=== PATIENT | male | born 1955 | race Caucasian/White ===

== ENCOUNTER → 2018-11-12 17:24 | Outpatient (CLI) | payer BC, SELFPAY ==
[2016-11-02 09:44] VITALS: BMI 31.8
[2016-11-02 10:30] VITALS: BMI 31.7
--- NOTE | 2018-11-12 17:33 | RAD_ITS ---
STUDY: X-RAY - LUMBAR SPINE REASON FOR EXAM: Male, 63 years old. Pain TECHNIQUE: 3 view(s) of the lumbar spine were obtained. COMPARISON: None FINDINGS: Normal lumbar lordosis. There is a minimal dextroscoliosis. Minimal wedge compression of T11 and T12. Normal vertebral bodies. Mild spurring at the endplates. Slightly narrowed L5-S1 disc space. The soft tissue structures are unremarkable. RAD/Lumbar Spine 2 or 3 Views IMPRESSION: Mild degenerative changes and minimal scoliosis of the lumbar spine. Electronically Signed: Sven Mack DO at 19:28 EDT Tel [phone], Service support ,
--- NOTE | 2018-11-12 17:33 | RAD_ITS ---
STUDY: X-RAY - THORACIC SPINE REASON FOR EXAM: Male, 63 years old. Pain TECHNIQUE: 3 view(s) of the thoracic spine were obtained. COMPARISON: None. FINDINGS: Normal kyphosis of the thoracic spine. There is no substantial scoliosis. Degenerative changes of the thoracic vertebrae with spurring at the endplates. Normal disc space heights. Sternotomy wires are noted. The soft tissue structures are unremarkable. RAD/Thoracic Spine 3 Views IMPRESSION: Degenerative changes of the thoracic spine. Electronically Signed: Sven Mack DO at 21:12 EDT Tel [phone], Service support ,
--- NOTE | 2018-11-12 17:40 | RAD_ITS ---
STUDY: X-RAY - CERVICAL SPINE REASON FOR EXAM: Male, 63 years old. Pain TECHNIQUE: 3 view(s) of the cervical spine were obtained. COMPARISON: None FINDINGS: Normal anterior atlantoaxial articulation. Normal odontoid process. Normal cervical lordosis. Degenerative changes of the vertebral bodies with spurring at the endplates. Narrowed disc space heights through the lower cervical levels. The soft tissue structures are unremarkable. RAD/Cerv Spine 2 or 3 Views IMPRESSION: Degenerative changes of the visualized cervical spine. Electronically Signed: Sven Mack DO at 21:07 EDT Tel [phone], Service support ,
== END ==
LOC: RAD 17:31
PROVIDERS: Referring Provider Anesthesiology Pain Medicine; Visit Provider Anesthesiology Pain Medicine
DX: M54.2 Cervicalgia (principal); M54.9 Dorsalgia, unspecified
CPT/HCPCS: 72040; 72072; 72100

== ENCOUNTER → 2018-12-22 14:55 | Outpatient (CLI) | payer BC, SELFPAY ==
[2016-11-02 10:30] VITALS: BMI 31.7
[2018-11-18 16:01] VITALS: BMI 34.2
--- NOTE | 2018-12-22 14:56 | ECHOD_ITS ---
Reason For Study: CHF Procedure This was a 2D Doppler, Color Flow transthoracic echocardiogram. Exam performed in department. Left Ventricle Normal size and thickness. The estimated ejection fraction is 65 %. Stage 1 diastolic dysfunction. No regional wall motion abnormalities noted. Right Ventricle Normal size and thickness. Normal systolic function. Atria The left atrium is mildly enlarged. Normal right atrium. Normal atrial septum. Mitral Valve Posterior leaflet mitral valve prolapse. Mild (1+) anteriorly directed mitral valve insufficiency. Tricuspid Valve Normal tricuspid valve. Trivial tricuspid valve insufficiency. Right ventricular systolic pressure estimated to be 45 mmHg. Mild pulmonary hypertension. Aortic Valve Normal aortic valve. Trisinus/trileaflet aortic valve. Pulmonic Valve Normal pulmonic valve. Great Vessels Normal aortic root. Normal arch. Normal inferior vena cava. Inferior vena cava collapse with sniff. Pericardium/Pleural No pericardial effusion. MMode/2D Measurements & Calculations LVIDd: 5.2 cm IVSd: 1.2 cm Ao root diam: 2.9 cm LVIDs: 3.2 cm LVPWd: 1.2 cm RVDd: 4.4 cm FS: 37.3 % LAV(MOD-bp): 65.2 ml LVAd ap4: 27.8 cm2 SV(MOD-sp4): 58.1 ml LAV(MOD-bp) Indexed: 28.3 ml/m2 EDV(MOD-sp4): 85.8 ml LAV(MOD-sp2): 60.6 ml EDV(sp4-el): 90.7 ml LAV(MOD-sp4): 71.2 ml LVAs ap4: 14.2 cm2 ESV(MOD-sp4): 27.7 ml ESV(sp4-el): 28.6 ml EF(MOD-sp4): 67.7 % EF(sp4-el): 68.4 % SV(sp4-el): 62.0 ml LA A4 area: 22.7 cm2 LA dimension(2D): 5.4 cm RA A4 area: 16.6 cm2 Doppler Measurements & Calculations MV E max goyo: 105.0 cm/sec Lat Peak E' Goyo: 9.9 cm/sec Med Peak E' Goyo: 6.6 cm/sec MV A max goyo: 50.9 cm/sec E/E' lat: 10.6 E/E' med: 15.8 MV E/A: 2.1 Ao V2 max: 189.3 cm/sec LV V1 max: 99.0 cm/sec PA V2 max: 145.4 cm/sec Ao max P.3 mmHg LV V1 max P.9 mmHg Ao V2 mean: 130.7 cm/sec Ao mean P.8 mmHg Ao V2 VTI: 46.7 cm PI end-d goyo: 102.1 cm/sec TR max goyo: 317.2 cm/sec TR max P.2 mmHg Interpretation Summary The estimated ejection fraction is 65 %. Stage 1 diastolic dysfunction. The left atrium is mildly enlarged. Posterior leaflet mitral valve prolapse. Mild (1+) anteriorly directed mitral valve insufficiency. Trivial tricuspid valve insufficiency. Right ventricular systolic pressure estimated to be 45 mmHg. Mild pulmonary hypertension. Compared to echo report dated 12/22/2014, LV function has remained the same, RVSP has increased from 31 to 45 mm Hg, and MR has gone from trivial to mild, with anteriorly directed regurgitation. Ordering Physician: Will Mcneill Referring Physician: Out Of Town Doctor Performed By: Haley Menon, KOBE, RVT
== END ==
LOC: CVS 14:56
PROVIDERS: Referring Provider Internal Medicine Cardiovascular Disease; Visit Provider Internal Medicine Cardiovascular Disease
DX: I25.10 Atherosclerotic heart disease of native coronary artery without angina pectoris (principal); E78.5 Hyperlipidemia, unspecified
CPT/HCPCS: 93306

== ENCOUNTER → 2018-12-25 13:25 | Outpatient (CLI) | payer BC, SELFPAY ==
[2016-11-02 10:30] VITALS: BMI 31.7
[2018-11-18 16:01] VITALS: BMI 34.2
--- NOTE | 2018-12-25 13:26 | STEWCON_ITS ---
Reason For Study: CHEST PAIN Stress Results Protocol: Dobutatmine Stress Echo Maximum Predicted HR: 157 bpm Target HR: 133 bpm % Maximum Predicted HR: 78 % Heart Stage Duration Rate BP Dose Comment (mm:ss) (bpm) DILUTED DEFINITY 5 CC USED, PT STATES HE ALWAYS HAS CP. BASELINE 53 145/[address] RUTH DSE- 10 MCG 3:50 80 131/6510.00 DSE- 20 MCG 3:41 90 155/6420.00 DSDE- 30 MCG 3:05 98 140/6730.00CP 8, ATROPINE GIVEN @ 2:28 0.5 MG IVP DSE- 40 MCG 3:33 123 124/7340.00ATROPINE GIVEN @ 2:32 0.5 MG IVP, CP 10 RECOVERY 99 148/79 ST CHANGES [address]VED[address] MCNEILL AWARE OF CHANGES Stress Duration: 14:09 mm:ss Maximum Stress HR: 123 bpm Baseline Echocardiogram Findings Stress Echo Wall motion Data Resting WM Intermediate WM Stress WM Resting Wall Motion Wall Motion Stress No regional wall motion Posterior-Basal: Mildly abnormalities noted. hypokinetic. Infero-Basal: Mildly hypokinetic. EKG Data The baseline ECG displays normal sinus rhythm. The patient was titrated from 10 mcg to a maximum of 40 mcg of dobutamine during the stress. The maximum heart rate attained was 123 beats per minute. This was 78% of maximum predicted heart rate. The stress ECG displays diffuse abnormal ST segments. No arrhythmias noted. Interpretation Summary Posterior-Basal: Mildly hypokinetic Infero-Basal: Mildly hypokinetic Abnormal, submaximal, dobutamine echocardiogram. Positive for ischemia by EKG and echocardiographic criteria. Patient had baseline 7 out of 10 chest pain prior to dobutamine infusion, which increased to 10 out of 10 chest pain during infusion and then reverted back to his baseline chest pain. Patient developed [address] segment depression at 9 minutes 21 seconds into his infusion for maximum of [address] of inferior lateral [address] depression at peak infusion. These changes resolved after 13 minutes 50 seconds into recovery. Rare PACs noted. Appropriate blood pressure response to dobutamine. Patient appeared to develop inferior basal hypokinesis seen in the parasternal long and parasternal short viewing angles. Poor echo windows requiring Definity agent may affect results of the test. Test terminated due to chest discomfort. Final LVEF is 65%. Patient will be referred for diagnostic coronary angiogram. The study was technically difficult. Contrast injection was performed. Ordering Physician: Will Mcneill Referring Physician: Will Mcneill Performed By: Bobby Koo RCS
== END ==
PROVIDERS: Referring Provider Internal Medicine Cardiovascular Disease; Visit Provider Internal Medicine Cardiovascular Disease
DX: R07.9 Chest pain, unspecified (principal); I25.10 Atherosclerotic heart disease of native coronary artery without angina pectoris; E78.5 Hyperlipidemia, unspecified
CPT/HCPCS: 93017; 93350; J7040; Q9957; A4216; C8928

== ENCOUNTER 2018-12-30 17:30 | Outpatient (RCR) | payer BC, SELFPAY ==
[2016-11-02 10:30] VITALS: BMI 31.7
[2018-11-18 16:01] VITALS: BMI 34.2
--- NOTE | 2018-11-27 18:27 | HP.PTEVAL ---
Patient's Visit Information LIZZY LOZANO is a 63 year old M referred to Physical Therapy by Rubens Hardwick MD with a diagnosis of BACK PAIN AND NECK PAIN. Date of Evaluation: 11/27/18 Physical Therapist: Kolton Iqbal PT, Cert MDT, OCS - Visit Plan Frequency: 2x /Week Duration: 4 Weeks Plan: PT INTERVENTIONS CERVICAL ROM/POSTURAL EX'S ,DLS ,LE FLEXABILITY AND STRENGTHENING, - Subjective Findings: This 63 y/o male presents to physical therapy with neck pain and back pain.Patient cervical and thoracic pain worse than lumbar. Patient has had neck pain and symptoms between scapular. Patient symptoms in cervical spine aggravated with twisting ,flexion ,looking up ,lifting with arms. Denies HENSON/tinnutis/nuasea. Alleviating factors resting. Aggraviating factors lumbar bending,lifting,leaning,sitting causes stiffness. Alleviating rest . Denies parathesia/tingling. Patient has h/o lumbar disectomy 30 years ago. PMH: stents ,CABG X 3.Coughing/sneezing -.Bowel/bladder -. Pateint symptoms affects sleeping. Patient pain affects ability to perform ADL'S and housework tasks. Patient condition affects QOL. Patient seen pain management recommended PT. Patient had x-rays thoracic,lumbar,cervical.patient has TENS unit. SOCAIL: . VOACTION: Schaeffler - Pain Bilateral Neck Pain Intensity (Out of 10): 6 Pain Intensity Range: 10 Bilateral Scapula Pain Intensity (Out of 10): 8 Pain Intensity Range: 10 Bilateral Back Pain Intensity (Out of 10): 5 Pain Intensity Range: 10 - Objective POSTURE: mild foward posture. GAIT: reciprocal pattern mild foward posture. PALAPTION: tender UT/levator/scapular. NEURO: denies parathesia/tingling,reflexes C5-6-7 2/3 ,L4-5,L5-S1. EDEMA: BLE CALF. SYMMMTIES: align. FLEXABLITY: hams min tight. CERVICAL ROM: flexion min loss ,extension mod loss,rotation/lateral flexion mod loss pain ,cervical retraction min loss. LUMBAR ROM: flexion min. BUE : grossly 4/5 except shoulder 4-/5. MMT: quads/hams 4-/5,hip flexion 4-/5,ankle 4/5. MUSCULAR ENDURANCE CORE: unable to hold - Special Tests C/S Radiculapathy - Left Upper limb tension test: Negative C/S Radiculapathy - Right Upper limb tension test: Negative C/S Radiculapathy - Left Spurlings: Positive C/S Radiculapathy - Right Spurlings: Positive C/S Radiculapathy - Left Cervical distraction: Negative C/S Radiculapathy - Right Cervical distraction: Negative Sharp Shelby: Negative Vertebral Artery Test: Negative Alar Ligament Test: Negative Cervical Sitting: Protrusion - Mechanical Response: No effect Cervical Sitting: Protrusion - Symptoms During Testing: Increases Cervical Sitting: Protrusion - Symptoms After Testing: Worse Cervical Sitting: Retraction - Mechanical Response: No effect Cervical Sitting: Retraction - Symptoms During Testing: Increases Cervical Sitting: Retraction - Symptoms After Testing: Worse L/S Slump test left side: Negative L/S Slump test right side: Negative L/S Left Straight Leg Raise: Negative L/S Right Straight Leg Raise: Negative Lumbar Standing: Flexion - Mechanical Response: No effect Lumbar Standing: Flexion - Symptoms During Testing: No effect Lumbar Standing: Flexion - Symptoms After Testing: No worse Lumbar Standing: Extension - Mechanical Response: No effect Lumbar Standing: Extension - Symptoms During Testing: Increases Lumbar Standing: Extension - Symptoms After Testing: No worse - Goals Goal 1:: Patient to be Independant with HEP Goal Time Frame: 4-6 Weeks Goal 2:: Patient to improve posture for ADL's Goal Time Frame: 4-6 Weeks Goal 3:: Patient to decrease pain by 50% > neck and lumbar to improve function Goal Time Frame: 4-6 Weeks Goal 4:: Patient to improve cervical and lumbar ROM for function of recovery Goal Time Frame: 4-6 Weeks Goal 5:: Patient improve lumbar and cervical ROM function of recovery . Goal Time Frame: 4-6 Weeks - Rehabilitation Potential Physical Therapy Diagnosis: Patient has cervical pain and back pain with poor ROM,pain ,decrease strength ,faulty posture ,weak core,postural deficits impairs function with jodband ADL's Rehabilitation Potential: Good - Anticipated Interventions Patient/Client Instruction: Educate patient on: Condition, Plan of Care For the Purpose of:: To decrease pain, To increase ROM, To improve muscle performance and motor function, To increase tolerance to activity/condition/position, To improve performance and independence with ADL's, To improve ability of physical actions for home/community/work/leisure, To improve health of tissue, To decrease soft tissue restriction, To increase flexibility/ROM, To reduce risk of recurrence, To improve ability to perform tasks related to life management Therapeutic Exercise to Include: Strength training, Postural training, Flexibilty training, Active ROM, Dynamic Lumbar Stabilization For the Purpose of:: To decrease pain, To increase ROM, To improve muscle performance and motor function, To increase tolerance to activity/condition/position, To improve ability of physical actions for home/community/work/leisure, To improve health of tissue, To decrease soft tissue restriction, To increase flexibility/ROM, To improve ability to perform tasks related to life management Thank you for the opportunity to evaluate your patient. For Medicare and Medicare HMO plans, please review the plan of care and approve it. It will need to be FAXED BACK to us at [phone] for Medicare purposes. For Medicare only, by signing this I certify the plan of care. Please let me know if there are questions or concerns regarding this plan of care. Physician Signature: Date:
--- NOTE | 2019-04-10 12:38 | HP.PT.NRP ---
HP - Discharge Summary (1) - Patient Information LIZZY LOZANO was seen in my office for initial evaluation on 11/27/18. The following Plan of Care was established for this patient: Initial Frequency: 2x /Week Initial Duration: 4 Weeks - Anticipated Interventions Patient/Client Instruction: Educate patient on: Condition, Plan of Care For the Purpose of:: To decrease pain, To increase ROM, To improve muscle performance and motor function, To increase tolerance to activity/condition/position, To improve performance and independence with ADL's, To improve ability of physical actions for home/community/work/leisure, To improve health of tissue, To decrease soft tissue restriction, To increase flexibility/ROM, To reduce risk of recurrence, To improve ability to perform tasks related to life management Therapeutic Exercise to Include: Strength training, Postural training, Flexibilty training, Active ROM, Dynamic Lumbar Stabilization For the Purpose of:: To decrease pain, To increase ROM, To improve muscle performance and motor function, To increase tolerance to activity/condition/position, To improve ability of physical actions for home/community/work/leisure, To improve health of tissue, To decrease soft tissue restriction, To increase flexibility/ROM, To improve ability to perform tasks related to life management This patient was last seen in our office . Pertinent comments regarding their Physical therapy will appear below: Patient was seen for neck and back pain for cervical pain focusing on cervical postural ex's,strengthening,DLS,thus is d/c from PT At this point I will be discontinuing this patient from physical therapy. I would be happy to see this patient again in the future if found appropriate by the physician. Thank you! Kolton Iqbal, PT, Cert MDT, OCS
== END 2018-12-30 19:00 | disposition home or self-care (01) ==
LOC: PT 17:30
PROVIDERS: Referring Provider Anesthesiology Pain Medicine; Visit Provider Anesthesiology Pain Medicine
DX: M54.2 Cervicalgia (principal); M54.9 Dorsalgia, unspecified
CPT/HCPCS: 97110; 97162

== ENCOUNTER 2018-12-31 06:48 | Day surgery (SDC) | payer BC, SELFPAY ==
[2016-11-02 10:30] VITALS: BMI 31.7
[2018-11-18 16:01] VITALS: BMI 34.2
--- NOTE | 2018-12-29 08:30 | RAD_ITS ---
STUDY: X-RAY CHEST REASON FOR EXAM: Male, 63 years old. Chest pain TECHNIQUE: PA and lateral views of the chest. COMPARISON: 10/30/2016 FINDINGS: Status post median sternotomy. The lungs are clear and expanded. There is no demonstrated pleural abnormality. There is moderate cardiac enlargement. Normal mediastinum and marilin. Normal visualized pulmonary arteries. Normal visualized aortic arch and descending thoracic aorta. Normal visualized thoracic spine. Normal visualized ribs, clavicles, and shoulders. There is no demonstrated abnormality of the visualized soft tissue structures of the upper abdomen. RAD/Chest PA and Lateral IMPRESSION: No active disease. Electronically Signed: Oswaldo Theodore MD at 15:55 EDT Tel , Service support ,
[2018-12-29 09:52] VITALS: BMI 33.5
[2018-12-29 12:44] LABS: Hematocrit 47.1 % (40-54); Hemoglobin 14.9 g/dL (13.0-16.5); Mean Corp Hgb Conc 31.6 g/dL (32-36); Mean Corpuscular Hgb 28.3 pg (27.0-32.0); Mean Corpuscular Volume 89.4 fL (80-94); Mean Platelet Vol. 9.7 fl (6.2-12.0); Platelet Count 276 K/mm3 (150-450); RBC Distribution Width CV 13.2 % (11.6-14.6); Red Blood Count 5.27 M/mm3 (4.6-6.2); White Blood Count 11.9 K/mm3 (4.4-11.0)
[2018-12-29 12:51] LABS: Partial Thromboplast Time 24.5 Seconds (24.1-36.2); Prothrombin Time (Protime)PT. 12.9 SECONDS (11.7-14.9)
[2018-12-29 13:17] LABS: Anion Gap 7 (5-15); BUN 24 mg/dL (7-18); Calcium,Total 8.7 mg/dL (8.5-10.1); Chloride 107 mmol/L (98-107); Creatinine, Serum 0.96 mg/dL (0.70-1.30); EST Glomerular Filtration Rate 84 mL/min (>60); Est Glom Filt Rate - Afr Amer 102 mL/min (>60); Glucose 84 mg/dL (74-106); Potassium 4.8 mmol/L (3.5-5.1); Sodium Level 143 mmol/L (136-145)
[2018-12-31] VITALS (22 sets, daily range): BP systolic 126–155; BP diastolic 41–84; PULSE 44–60; RESP 12–20; TEMP 36.1–36.7; O2SAT 95–100; BMI 32.8; BMI 33.7
[2018-12-31 09:51] LABS: ACT Activated Clotting Time 169 sec (74-137)
--- NOTE | 2018-12-31 09:51 | HP.PCM_ITS ---
Problem List (1) Dyspnea on exertion Status: Acute (2) Chest pressure Status: Acute (3) Abnormal stress test Status: Acute (4) Atherosclerosis of coronary artery of knik heart without angina pectoris Status: Chronic Qualifiers: Comment: PCI-KEISHA-LAD 2.5 x 16 mm Promus Premier 12/24/2014, WJJ-WJL-Dify RCA 3.0 x 15 mm Promus 11/02/2016 CABG x 3 QUIROZ-D1, SVG-LAD, SVG-OM @ [place] (5) History of coronary artery stent placement Status: Chronic Comment: PCI-KEISHA-LAD 2.5 x 16 mm Promus Premier 12/24/2014, P CI-KEISHA-Prox RCA 3.0 x 15 mm Promus 11/02/2016 (6) H/O coronary artery bypass surgery Status: Chronic Comment: CABG x 3 QUIROZ-D1, SVG-LAD, SVG-OM @ [place] (7) Hyperlipidemia Status: Chronic Qualifiers: (8) Hypertension Status: Chronic Qualifiers: History and Physical Date of Admission: 12/31/18 [facility] [address] [place] [address] OFFICE VISIT Date of Service: 12/29/18 MR#: [id number] Acct: [id number] Name: LIZZY NICHOLAS Rep #: [id number] : 1955 Provider: TIGIST Menon Age/Sex: 63/M Location: [facility] Status: Signed HPI HPI History of Present Illness Surgical H&P: Yes Details: Mr. Nicholas is a very pleasant 63-year-old gentleman with a history of hypertension, obstructive sleep apnea and compliant with his CPAP, hypercholesterolemia, nondiabetic, coronary artery disease status post coronary bypass surgery in 10/02/[address] Neff at [facility]. At that time he received QUIROZ to the diagonal, saphenous vein graft to the LAD, and a saphenous vein graft to the obtuse marginal. He did not have any bypass to the right coronary artery. In addition he underwent successful angioplasty and stenting at the distal anastomotic site of the saphenous vein graft to the LAD by me at [facility] on 12/24/2014 at which time he received a 2.5 ex-16 Promus Premier postdilated with a 2.5 and 2.75 noncompliant balloon. In addition he underwent repeat catheterization on 02/14/2016 which demonstrated widely patent QUIROZ to the LAD, widely patent saphenous vein graft to the diagonal, widely patent saphenous vein graft to the circumflex. In addition his stent located at the anastomotic site of his saphenous vein graft to the LAD was also widely patent. He was found to have 50% proximal RCA stenosis but was not evaluated with FloWire at that time. At that time his stress test showed no evidence of inferior ischemia and he was treated medically. Patient then returned with unstable anginal symptoms on 11/02/2016 underwent repeat catheterization and FloWire evaluation of his RCA. This was found to be abnormal and he underwent successful angioplasty and drug-eluting stent to the proximal RCA receiving a 3.0 ex-16 Promus stent with an excellent result. Unfortunately the patient's is in the interim and he has not seen us in the better part of 2 years. He described exertional chest pressure, chest pain, dyspnea on exertion similar to prior stenting to his RCA in 2017 at last office visit on 11/18/2018. He underwent an echocardiogram and stress echocardiogram. His echocardiogram showed ejection fraction of 65% and no regional wall motion abnormalities. His stress echocardiogram from 12/25/2018 was considered to be an abnormal, sub- maximal, dobutamine echocardiogram that was positive for ischemia by EKG and echocardiographic criteria. Because of his stress echocardiogram, he will undergo a left heart catheterization to further evaluate coronary artery disease. He states ongoing chest pain with rest and activity. This is worse with activity. This improves with rest. At rest the pain is 8/10 and with activity 10/10. This is a sharp, center chest pain. Pt denies arm, jaw, or neck discomfort. He states SOB with activity that improves with rest. Pt denies symptoms of palpitation, lightheadedness, dizziness, near syncopal or syncopal episodes. He states feeling off balanced. Pt denies worsening edema or claudication issues. He states orthopnea over the last 4 months. Pt. denies PND, or myalgia. He states reduced energy d/t lack of ambition. 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: No Is patient in pain?: Yes Pain scale (1-10): 8 Allergies adhesive tape Allergy (Mild, Verified 12/29/18 09:53) Rash atorvastatin Adverse Reaction (Severe, Verified 12/29/18 09:53) Memory and balance issues Medications Metoprolol Tartrate [Lopressor (Beta Bridget)] 25 mg PO BID 02/13/16 [History Confirmed 12/29/18] Nitroglycerin (INPATIENT USE) [Nitrostat] 0.4 mg SUBLINGUAL Q5M PRN 02/13/16 [History Confirmed 12/29/18] Oxycodone HCl/Acetaminophen [Endocet 2.5-325 mg Tablet] 1 ea PO PRN PRN 02/13/16 [History Confirmed 12/29/18] Aspirin 325 mg PO DAILY@0800 11/01/16 [History Confirmed 12/29/18] Escitalopram Oxalate [Lexapro] 20 mg PO DAILY 11/01/16 [History Confirmed 12/29/18] Esomeprazole Mag Trihydrate [Nexium] 20 mg PO DAILY 11/01/16 [History Confirmed 12/29/18] clopidogrel 75 mg tablet 75 mg PO DAILY #90 tab 10/24/18 [Rx Confirmed 12/29/18] duloxetine 60 mg capsule,delayed release 60 mg PO DAILY 11/18/18 [History Confirmed 12/29/18] ferrous sulfate 325 mg (65 mg iron) tablet 325 mg PO DAILY 11/18/18 [History Confirmed 12/29/18] furosemide 40 mg tablet 40 mg PO DAILY #90 tab 11/18/18 [Rx Confirmed 12/29/18] multivitamin tablet 1 tab PO DAILY 11/18/18 [History Confirmed 12/29/18] polyethylene glycol 3350 17 gram/dose oral powder 17 g PO DAILY 11/18/18 [History Confirmed 12/29/18] pramipexole 0.125 mg tablet 0.125 mg PO QHS 11/18/18 [History Confirmed 12/29/18] tamsulosin 0.4 mg capsule 0.4 mg PO QHS #90 cap 11/18/18 [Rx Confirmed 12/29/18] pregabalin 50 mg capsule 50 mg PO BID cap 12/29/18 [History Confirmed 12/29/18] [facility] Medical History (Updated 12/29/18 @ 15:27 by Rajat Menon NP-C) Dyspnea on exertion (Acute) Chest pressure (Acute) Abnormal stress test (Acute) Atherosclerosis of coronary artery of knik heart without angina pectoris (Chronic) Hyperlipidemia (Chronic) Hypertension (Chronic) Surgical History (Updated 11/18/18 @ 16:00 by Marine Mathis) History of coronary artery stent placement (Chronic 11/02/16) H/O coronary artery bypass surgery (Chronic 10/02/07) Family History (Updated 05/24/17 @ 16:33 by Olivia Diaz) Mother CAD (coronary artery disease) Brother CAD (coronary artery disease) Social History (Updated 12/29/18 @ 15:32 by BOLIVAR AminC) Smoking Status: Never smoker ROS Const Const: Positive for fatigue; negative for weakness, body ache, fever(s) or chills ENT ENT: Negative for dizziness Cardio Chest Pain: Yes Palpitations: No Edema: Bilateral Muscle aches with walking: None Resp Respiratory: Positive for SOB with activity and SOB orthopnea\SOB lying down; negative for SOB at rest or paroxysmal nocturnal dyspnea GI GI: Negative nausea, vomiting blood/hematemesis, bright, red blood in stools or black,tarry stools : Negative for hematuria or frequent nighttime urination/ nocturia Musc Musc: Negative for muscle aches/ myalgia Skin Skin: Negative non-healing lesions or rash Neuro Neuro: Positive for other (off balance); negative for dizziness, lightheadedness, near syncope, syncope, orthostatic symptoms or weakness Endo Endo: Positive for fatigue Allergy Allergy/Immunology: Negative for rash Cardiology Exam Const Appearance: cooperative, healthy appearing, comfortable and no acute distress Nutritional Appearance: well nourished and obese Orientation: alert, awake and oriented x3 Head Head: normal to inspection Ears: hearing grossly normal bilaterally Nose: external nose normal Face and Sinus: face symmetric Mouth: oral mucosae normal Eyes General: appearance normal, both eyes and all related structures Eyelids: eyelids normal EOM: EOM intact bilaterally Neck Neck: normal visual inspection and no JVD Carotids: normal carotid upstroke Chest Chest inspection: normal inspection of the chest, symmetric chest movement and normal respiratory effort; negative cough Auscultation: Bilateral: Clear to Auscultation Cardio Rate: regular rate Rhythm: regular rhythm Heart sounds: S1 normal, S2 normal and murmur; negative rub or gallop Murmur: Grade 2/6 and holosystolic GI GI: normal to inspection and obese Neuro General: alert, awake, oriented x3 and CN's II-XI intact bilaterally Skin Skin: no rashes or lesions noted Extremities Pulses: Normal: Right Posterior Tibial Pulse, Left Posterior Tibial Pulse, Right Radial Pulse, Left Radial Pulse Lower Extremity Edema: None: Bilateral Psych Psychological: normal affect Assessment & Plan 1. Atherosclerosis of knik coronary artery of knik heart without angina pectoris I25.10 PCI-KEISHA-LAD 2.5 x 16 mm Promus Premier 12/24/2014, EDJ-YSL-Dqov RCA 3.0 x 15 mm Promus 11/02/2016 CABG x 3 QUIROZ-D1, SVG-LAD, SVG-OM @ [place] Plan Given his history of CAD and abnormal stress echocardiogram, he will proceed with left heart catheterization. Based on results further recommendation will be made. He is currently on aspirin 325 mg p.o. daily. He does acknowledge taking his Plavix and Nexium at different times. Patient results of his heart catheterization, further recommendation be made. 2. H/O coronary artery bypass surgery Z95.1 CABG x 3 QUIROZ-D1, SVG-LAD, SVG-OM @ [place] Plan He will continue current treatment as outlined above. 3. History of coronary artery stent placement Z95.5 PCI-KEISHA-LAD 2.5 x 16 mm Promus Premier 12/24/2014, AAJ-WWM-Rriz RCA 3.0 x 15 mm Promus 11/02/2016 Plan He will continue current treatment as outlined above. 4. Essential hypertension I10 Plan At this time, we will continue to monitor. We will titrate medication as tolerate and indicated. 5. Hyperlipidemia, unspecified hyperlipidemia type E78.5 Plan He has been intolerant to statin medications previously. Plan Detail Additional Comments He will undergo a left heart catheterization with Dr. Mcneill. Thank you for allowing us to participate in the patients plan of care, if you have any questions please do not hesitate to call. This note was generated using a voice recognition system and there may be incorrect words, spelling or punctuation that were not noted when reviewing the office note prior to saving. Coding Level of Care Code Off vis,est,level 3 Diagnoses Atherosclerosis of knik coronary artery of knik heart without angina pectoris I25.10 ??Coronary Disease-Associated Artery/Lesion type: knik artery H/O coronary artery bypass surgery Z95.1 History of coronary artery stent placement Z95.5 Essential hypertension I10 ??Hypertension type: essential hypertension Hyperlipidemia, unspecified hyperlipidemia type E78.5 ??Hyperlipidemia type: unspecified Coding Level of Care Code Off vis,est,level 3 Diagnoses Atherosclerosis of knik coronary artery of knik heart without angina pectoris I25.10 ??Coronary Disease-Associated Artery/Lesion type: knik artery H/O coronary artery bypass surgery Z95.1 History of coronary artery stent placement Z95.5 Essential hypertension I10 ??Hypertension type: essential hypertension Hyperlipidemia, unspecified hyperlipidemia type E78.5 ??Hyperlipidemia type: unspecified Supplemental Info Supplemental Information Labs LDL Cholesterol 93 mg/dL (0-130) 12/08/16 HDL Cholesterol 48 mg/dL (40-) 12/08/16 Triglycerides 111 mg/dL (-199) 12/08/16 VLDL Cholesterol 22 mg/dL (5-40) 12/08/16 Diagnostics Electrocardiogram 11/03/16 Echocardiogram 12/22/18 Stress Echocardiogram 12/25/18 Cardiac Catheterization 02/14/16 Chest X-Ray 12/29/18 12/29/18 [id number] <Electronically signed by Rajat Patel> Date _ Rajat ESCOTO Cosigner Signature: Date (if applicable) CC: ~ Interventional cardiology attending addendum: Patient seen and examined on day of procedure, and no interim changes noted. Patient has both atypical and atypical anginal presentation. Patient abnormal stress test with inferior lateral ischemia, and the risk/benefits of the procedure were thoroughly explained the patient including specific attention to lack of on-site surgical back-up. Patient is agreed to proceed. Catheterization to follow.
--- NOTE | 2018-12-31 10:03 | CL.I_ITS ---
Patient Name: LIZZY LOZANO Study Date: 12/31/2018 Performing: Will Mcneill MD Ht: 72 inches 183 cm : 1955 Wt: 242.1 lbs 109.68 kg Age: 63 Gender: male BSA: 2.31 PROCEDURE(S) PERFORMED AH18-RSX/COR/LV/CABG DC11-AO ROOT ANGIO WITH HEART CATH OD40-HZV W OR WO PTCA, SINGLE CORONARY ARTERY CLINICAL PROFILE AND CO-MORBIDITIES Indications: New Onset Angina <= 2 months, Stable Known CAD Heart Failure: None Stress/Imaging Stress Echocardiogram: Yes Result: Positive Low Risk Stress Echocardiogram: Positi ve Low Risk Angina Classification Anginal Classification w/in 2 Weeks: CCS III CAD Presentations: Unstable angina. Comorbidities/Risk Factors: Hypertension Dyslipidemia Prior PCI Prior CABG CONCLUSIONS Double vessel CAD of the LAD and LCX Normal LV size, wall motion,and systolic function LVEF: by LV gram 65 % Normal Left Ventricular End Diastolic Pressure Widely patent QUIROZ to DIAG Widely patent SVG to LAD with mild<40% ISR Occluded SVG to OM#1 Widely patent proximal RCA stent. Normal LV size, wall motion,and systolic function LVEF: by LV gram 65 % Normal Left Ventricular End Diastolic Pressure Successful PTCA/KEISHA ostial/proximal LCX with a 2.25 x 24 Promus Synergy, post dilated proximally with a 2.25 x 12 NC balloon; 85%-->0%, no dissection. Pt had identical CP/anginal symptoms during balloon /stent deployment. RECOMMENDATIONS Referred for immediate PCI Highly recommend quitting all tobacco products Follow up with primary build and deployment engineer Risk factor modification ASA Indefinitley Plavix for at least 12 months Routine post interventional care Refer for Outpatient Cardiac Rehab Manual sheath removal per protocol Follow up with Dr. Mcneill Successful Mynx Control closure of RFA. DESCRIPTION OF PROCEDURE The patient arrived to the procedure lab. The risks and benefits of the procedure as well as a full d escription of our services here and lack of surgical backup were fully explained to the patient and/o r their significant other prior to the catheterization. The Timeout was completed, verifying the gillian ect patient and procedure. The patient's procedural site was prepped and draped in the usual fashion. Local anesthetic was given subcutaneously to right groin region with Lidocaine 2%. Using a modified Seldinger technique, arterial access was obtained via the right femoral artery, a 4Fr sheath was inse rted. Left Coronary Artery selective angiography was performed in multiple views using a 5 Fr. JL 5 catheter. Right Coronary Artery selective angiography was then performed in multiple views using a 4 Fr. 3DRC catheter. Saphenous Vein graft to the OM 1 selective angiography was performed in multiple v iews using a 4 Fr. 3DRC catheter. Saphenous Vein graft to the LAD selective angiography was performed in multiple views using a 4 Fr. 3DRC catheter. Left internal mammary artery graft to th e DIAG 1 selective angiography was performed in multiple views using a 4 Fr. 3DRC catheter. Left Vent riculography was performed in CONNER projection using a 4 Fr. Pigtail catheter. LV to AO pullback pressu res were then recorded. Ascending (root) aorta selective angiography was then performed in single vie w. Ascending (root) aorta selective angiography was then performed in single viewThe images were revi ewed and options discussed. A decision was then made to proceed with an Intervention, IVUS or other a djunct procedure. Arterial sheath was exchanged for a 6 Fr Sheath. EBU 3.75 Guide catheter was inserted and engaged into the LCA. BMW Guide wire was advanced to the Circumflex. Emerge 2.00x12 Balloon catheter was ins erted. PTCA balloon inflated at 7 atms for 13 secs. PTCA balloon inflated at 8 atms for 14 secs. PTCA balloon inflated at 8 atms for 8 secs. PTCA balloon inflated at 10 atms for 18 secs. PTCA balloon in flated at 10 atms for 11 secs. Angiogram performed post balloon dilatation. Synergy 2.25x24 Drug Elut ing stent was inserted. Angiogram performed post stent deployment. NC Emerge 2.25x12 Balloon catheter was inserted. PTCA balloon inflated at 12 atms for 8 secs. PTCA balloon inflated at 14 atms for 10 s ecs. Angiogram performed post balloon dilatation. Contrast was injected through the sheath and the Ri ght Iliac and Femoral artery were assessed for possible closure device. The arterial sheath was pull ed and a Mynx closure device was deployed for hemostasis CORONARY ANGIOGRAPHY DOMINANCE: Right Dominant LEFT HEART ASSESSMENT Left Ventricular Ejection Fraction: by LV Gram 65 % Normal Left Ventricular systolic function Normal LV wall motion LEFT MAIN: Angiographically normal LEFT ANTERIOR DESCENDING ARTERY: OSTIAL LAD: is occluded CIRCUMFLEX ARTERY: PROX CIRC: 85 % Stenosis OM 1: Mid - is occluded RIGHT CORONARY ARTERY: PROX RCA: Previously placed stent is patent GRAFTS: QUIROZ graft to the 1st Diagonal is patent Saphenous Vein graft to the Mid LAD is patent Saphenous Vein graft to the 1st OM is totally occluded INTERVENTION INFORMATION LESION SITE: Circumflex (Proximal) Lesion Complexity: High/C, lesion at bifurcation: No, thrombus present: No, lesion length: 24 mm, cul prit lesion: Yes Pre Stenosis: 85 % Pre intervention DIANNE flow: 3 PROCEDURE: Drug Eluting Stent with pre and post dilatation Post Stenosis: 0 % Post intervention DIANNE flow: 3 Lesion Devices: Hart .014 BMW Austin Straight 190cm Roosevelt Sci EMERGE MR 2.00x12 BALLOON Medtronic 6 Fr EBU3.75 100cm Guide Catheter Roosevelt Sci Synergy MR KEISHA 2.25x24 Roosevelt Sci NC EMERGE MR 2.25x12 BALLOON COMPLICATIONS No Complications PROCEDURE MEDICATIONS Oxygen: 2 L/min via nasal cannula Heparin 6000 unit(s) IV 12/31/2018 09:06:10 Nitro 200 mcg IC 12/31/2018 09:16:33 Nitro 200 mcg IC 12/31/2018 09:16:33 IV Bolus: .9 NaCl 500ml total 12/31/2018 09:06:52 SUMMARY OF HEMODYNAMIC DATA Time AIR REST ECG 07:08:34 AO 131/56 (85) SA 08:48:03 LV 141/-13, 8 09:01:01 LV 148/-16, 13 09:01:07 LVp 140/-18, 7 09:01:11 AOp 133/54 (82) 09:01:16 Signed By Will Mcneill MD On 12/31/2018 10:02:52 Will Mcneill MD
--- NOTE | 2018-12-31 10:31 | PCM.DC.CCA ---
Discharge Diet: Low fat/ Low Cholesterol Discharge Activity: Return to Normal Activity May shower in (days): 1 - No tub baths for 5 days May resume sexual activity in: 1-2 weeks Lifting Restrictions: Do not lift anything greater than 10 pounds for 3 days Call your doctor if your incision/area has: Continuous Slow Oozing, Sudden Increased Bleeding, Increased Pain/ Swelling, Increased Redness, Foul Smelling Discharge, Swelling at the incision site Call your doctor if you observe: Fever of 101 or Higher, Shortness of breath, Chest pain Remove Dressing in (days):: 1 Cleanse incision/area with: Soap & Water Additional Instructions: You will continue with Aspirin therapy. He will remain on Plavix therapy for at least one year. He may continue with Aspirin 325 mg p.o. daily and once completed you may begin Aspirin 81 mg p.o. daily. It has been confirmed with Dr. Mcneill that it is acceptable to take Nexium 20 mg p.o. twice a day. Your metoprolol will be decreased to 12.5 mg p.o. twice daily. He will begin losartan 25 mg p.o. daily. Please continue to monitor blood pressure and heart rate with these medication changes. You are not on cholesterol-lowering medication due to intolerance to medication previously. There will be ongoing consideration for medication on an outpatient basis. If you have any questions or concerns, please call the [facility] Office. Allergies/Adverse Reactions: Allergies adhesive tape Allergy (Mild, Verified 12/29/18 09:53) Rash atorvastatin Adverse Reaction (Severe, Verified 12/29/18 09:53) Memory and balance issues Medications to take at Discharge Nitroglycerin (INPATIENT USE) [Nitrostat] 0.4 mg SUBLINGUAL Q5M PRN 02/13/16 Oxycodone HCl/Acetaminophen [Endocet 2.5-325 mg Tablet] 1 ea PO Q6H PRN PRN 02/13/16 Aspirin 325 mg PO DAILY@0800 11/01/16 Escitalopram Oxalate [Lexapro] 20 mg PO DAILY 11/01/16 clopidogrel 75 mg tablet 75 mg PO DAILY #90 tab 10/24/18 duloxetine 60 mg capsule,delayed release 60 mg PO DAILY 11/18/18 ferrous sulfate 325 mg (65 mg iron) tablet 325 mg PO DAILY 11/18/18 furosemide 40 mg tablet 40 mg PO DAILY #90 tab 11/18/18 multivitamin tablet 1 tab PO DAILY 11/18/18 polyethylene glycol 3350 17 gram/dose oral powder 17 g PO DAILY 11/18/18 pramipexole 0.125 mg tablet 0.125 mg PO QHS 11/18/18 tamsulosin 0.4 mg capsule 0.4 mg PO QHS #90 cap 11/18/18 pregabalin 50 mg capsule 50 mg PO TID cap 12/29/18 esomeprazole magnesium 20 mg capsule,delayed release 20 mg PO BID #180 cap 01/01/19 losartan 25 mg tablet 25 mg PO DAILY #30 tab 01/01/19 metoprolol tartrate 25 mg tablet 12.5 mg PO BID #90 tab 01/01/19 Orders to be completed after discharge: Phase II, Outpatient Cardiac Rehab Location: None Selected Primary Care Physician: ANGUS HOPKINS [Other] Test Results: Test results from this visit will be discussed in further detail at your follow-up appointment, if applicable. Please Follow Up With: Sunni Lieberman - Physician Ecommerce Marketing Specialist When: 01/16/2019 at 8:30 AM Cardiac Rehabilitation Info Cardiac Rehabilitation Program Information: Cardiac Rehabilitation is important for patients like you who are recovering from a heart problem. Cardiac rehabilitation programs are recognized as integral to the continued care of the patient with coronary heart disease. The cardiac rehabilitation program is designed to optimize a patient's physical, psychological, and social functioning. Health intensive care specialist work in cardiac rehabilitation programs and assist you with getting the treatments you need to get stronger and healthier - like exercise, healthy eating habits, and medications. Cardiac rehabilitation has been show to help people with heart problems live longer and have better life enjoyment than people who do not go to cardiac rehabilitation. Please contact the Cardiac Rehabilitation Program at [facility] at in two weeks if you have not heard from them.
[2018-12-31] MEDS: 0.9% Normal Saline 1,000 ML 150 ML IV (11:00)
[2018-12-31] MEDS: Pantoprazole Sodium 20 MG Tablet PO ×2 (11:27→21:19)
[2018-12-31] MEDS: Pregabalin 50 MG Capsule PO ×2 (11:27→21:19)
[2018-12-31] MEDS: Ferrous Sulfate 325 MG Tablet PO (11:28)
[2018-12-31] MEDS: Multivitamins,Therapeutic Tablet 1 TABLET PO (11:28)
--- NOTE | 2018-12-31 13:07 | CRPHASE1 ---
Patient Communication PHII Cardiac Rehab Discussed with Patient:: Yes Guide to Cardiac Rehab Given to Patient:: Yes Cardiac Rehab Facility Choice List Given to Patient:: Yes - chooses [facility] Choice Program [facility] CR PHII:: Communication Given to CR, Refer to [facility] Choice Program Other:: Communication Given to CR, With permission faxed order and referral information Associate Professor Of Literature:: Will Mcneill Refer Phase II Cardiac Rehab:: Yes - Pt unsure if he will have a large copay Sessions:: 36 sessions - 3 days/wk, 12 weeks Risk Factors/Lifestyle Smoking Status: Never smoker Hx Hypertension: Yes Hx Dyslipidemia: Yes Hx Obesity: Yes Height: 1.83 m Weight:: 112.945 kg BMI: 33.7 Family History: Family History (Last Reviewed 11/15/18 @ 17:02 by Marine Mathis) Mother CAD (coronary artery disease) Brother CAD (coronary artery disease) Phase I Education Given On:: [place], Nutrition, Antiplatelet medication, CHF, Smoking cessation, Diabetes - Type I, Diabetes - Type II Issues Affecting Care:: None, Economic Knowledge of Condition:: Yes Hospital Course Cardiac Cath Date:: 12/31/18 Medical/Surgical History Hypertension:: Yes Dyslipidemia:: Yes CABG: Yes PTCA:: Yes Discharge/Home/Social Eval Discharge Disposition: Home Cardiac Rehabilitation Info Cardiac Rehabilitation Program Information: Cardiac Rehabilitation is important for patients like you who are recovering from a heart problem. Cardiac rehabilitation programs are recognized as integral to the continued care of the patient with coronary heart disease. The cardiac rehabilitation program is designed to optimize a patient's physical, psychological, and social functioning. Health direct care provider work in cardiac rehabilitation programs and assist you with getting the treatments you need to get stronger and healthier - like exercise, healthy eating habits, and medications. Cardiac rehabilitation has been show to help people with heart problems live longer and have better life enjoyment than people who do not go to cardiac rehabilitation. Please contact the Cardiac Rehabilitation Program at [facility] at in two weeks if you have not heard from them.
--- NOTE | 2018-12-31 13:11 | CRPH1.INSTRU ---
General Education CAD and cardiac anatomy and function:: Patient communicates acknowledgment Explanation of diagnoses and procedures:: Patient communicates acknowledgment Sign/Symptoms of CO:: Patient communicates acknowledgment Antiplatelet therapy: Patient communicates acknowledgment Proper use of NTG-SL: Not instructed Emergency procedures and activation of EMS: Patient communicates acknowledgment Compliance of all prescribed medications: Patient communicates acknowledgment Smoking Nicotine/Smoking Response Code:: Patient communicates acknowledgment Dyslipidemia Dyslipidemia Response Code:: Patient communicates acknowledgment Overweight/Obesity Overweight/Obesity:: Patient communicates acknowledgment Hypertension Hypertension:: Patient communicates acknowledgment Heart Disease Heart Disease Response Code:: Patient communicates acknowledgment Diabetes Diabetes:: Patient communicates acknowledgment Metabolic Syndrome Metabolic Syndrome Response Code:: Patient communicates acknowledgment Sedentary Sedentary Response Code:: Patient communicates acknowledgment Stress Stress Response Code:: Patient communicates acknowledgment
[2018-12-31] MEDS: Escitalopram Oxalate 20 MG Tablet PO (13:15)
[2018-12-31] MEDS: Furosemide 40 MG Tablet PO (13:15)
[2018-12-31] MEDS: DULoxetine Hcl 60 MG Capsule PO (13:15)
[2018-12-31] MEDS: Mag Hydrox/Al Hydrox/Simeth 30 ML UDC PO (14:20)
[2018-12-31] MEDS: Pramipexole Di-HCl 0.125 MG Tablet PO (21:19)
[2018-12-31] MEDS: Tamsulosin HCl 0.4 MG Capsule PO (21:19)
[2019-01-01] VITALS (15 sets, daily range): BP systolic 123–151; BP diastolic 46–78; PULSE 43–60; RESP 12–21; TEMP 36.4–36.7; O2SAT 94–100
[2019-01-01 04:29] LABS: Hematocrit 45.9 % (40-54); Mean Corp Hgb Conc 32.7 g/dL (32-36); Mean Corpuscular Hgb 28.4 pg (27.0-32.0); Mean Corpuscular Volume 86.9 fL (80-94); Mean Platelet Vol. 9.5 fl (6.2-12.0); Platelet Count 252 K/mm3 (150-450); RBC Distribution Width CV 13.2 % (11.6-14.6); RBC Distribution Width SD 42.2 fl (35.1-43.9); Red Blood Count 5.28 M/mm3 (4.6-6.2); White Blood Count 9.5 K/mm3 (4.4-11.0)
[2019-01-01 04:44] LABS: ALB/GLOB Ratio 1.2 RATIO (0.9-2.4); AST(SGOT) 17 U/L (15-37); Alanine Aminotransfer ALT/SGPT 24 U/L (16-61); Albumin, Serum 3.6 g/dL (3.2-5.0); Alkaline Phosphatase 73 U/L (45-117); Anion Gap 8 (5-15); BUN 21 mg/dL (7-18); BUN/Creat Ratio 25.1 RATIO (10-20); Calcium,Total 8.7 mg/dL (8.5-10.1); Chloride 103 mmol/L (98-107); Creatinine, Serum 0.84 mg/dL (0.70-1.30); EST Glomerular Filtration Rate 99 mL/min (>60); Est Glom Filt Rate - Afr Amer 119 mL/min (>60); Glucose 96 mg/dL (74-106); Potassium 4.6 mmol/L (3.5-5.1); Protein, Total 6.6 g/dL (6.4-8.2); Sodium Level 138 mmol/L (136-145)
[2019-01-01] MEDS: Multivitamins,Therapeutic Tablet 1 TABLET PO (08:19)
[2019-01-01] MEDS: Ferrous Sulfate 325 MG Tablet PO (08:19)
[2019-01-01] MEDS: Aspirin E.C. 81 MG Tablet PO (08:19)
[2019-01-01] MEDS: Losartan Potassium 25 MG Tablet PO (08:19)
--- NOTE | 2019-01-01 08:29 | PCM.PN.CARD ---
Subjectve: Patient doing very well this morning. No 24-hour events. Telemetry shows sinus bradycardia. EKG shows sinus bradycardia, no acute changes. No chest pain overnight. Right groin is clean/dry/intact, no thrills, bruits or hematoma. Hemoglobin and creatinine are within nominal limits. Objective: Vital Signs Temp Pulse Resp BP Pulse Ox 97.6 F L 51 L 13 136/71 H 100 01/01/19 08:00 01/01/19 08:00 01/01/19 08:00 01/01/19 08:00 01/01/19 08:00 Oxygen Delivery Method Room Air Weight: 249 lb 9.012 oz Body Mass Index (BMI) 33.7 Intake and Output for Last 24 Hours 12/30/18 12/31/18 01/01/19 23:59 23:59 23:59 Intake Total 1600 / 1600 Output Total 1850 / 1850 900 / 900 Balance -250 / -250 -900 / -900 General: Awake, Alert, Oriented x 3 HEENT: PERRL, EOMI, Sclera Non Icteric Neck: Supple, Good ROM, No Lymph Node Enlargement Lungs: Clear to auscultation Cardiovascular: Regular Rhythm, Normal S1, Normal S2, No Murmurs, No Rubs, No Gallops Vascular: No Carotid Bruits, Normal Femoral Pulses, Normal Radial Pulses, Normal Dorsalis Pedal Pulse, Normal Posterior Tibial Pulses Abdomen: Bowel Sounds Present, Soft, Non Tender, No HSM, No Organomegaly Extremities: No Cyanosis, No Clubbing, No edema Neurological: No Focal Motor or Sensory Deficit 01/01/19 04:00: WBC 9.5, RBC 5.28, Hgb 15.0, Hct 45.9, MCV 86.9, MCH 28.4, MCHC 32.7, Plt Count 252, MPV 9.5 01/01/19 04:00: Sodium 138, Potassium 4.6, Chloride 103, Carbon Dioxide 27.0, Anion Gap 8, BUN 21 H, Creatinine 0.84, Est GFR (MDRD) Af Amer 119, Est GFR (MDRD) Non-Af 99, BUN/Creatinine Ratio 25.1 H, Glucose 96, Calcium 8.7, Total Bilirubin 0.50 Rhythm: EKG: ECHO: Stress Test: Cardiac Cath: PCI: CT Surgery: Holter monitor: EPS: PPM: CXR: Chest CT Scan: Medical Necessity - Tobacco Use Smoking Status: Never smoker Assessment/Plan 1. Coronary artery disease: Patient was found to have an occluded saphenous vein graft to the obtuse marginal, and underwent angioplasty and drug-eluting stenting to the [place] left circumflex to correct this. He received a 2.25X 24 Promus Synergy stent with an excellent result. We attempted to cross the occluded obtuse marginal with a wire but were unable to do so indicating that is most likely a chronic total occlusion. No additional angioplasty was performed or recommended at this time. Would recommend the patient continue baby aspirin and Plavix for life given his age of his bypass grafts and the fact that he just recently lost a graft as well as his multitude of stents. No indication for any additional stenting at this time. The patient be discharged home and follow-up with Dr. Mcneill going forward. He will be enrolled in cardiac rehab in 2 weeks time once his groin is healed. 2. Hypertension: In addition the patient be started on Cozaar 25 mg p.o. daily. We will continue Lopressor 12.5 mg p.o. twice daily unless or until the patient has symptomatic bradycardia. 3. Hyperlipidemia: Unfortunate the patient is unable to tolerate statin based medications we will consider gemfibrozil as an outpatient. 4. Patient may be discharged home. Code Visit Inpatient E&M: 87660 Subs Hosp L2
[2019-01-01] MEDS: Metoprolol Tartrate 25 MG Tablet 12.5 MG PO (10:15)
[2019-01-01] MEDS: DULoxetine Hcl 60 MG Capsule PO (10:16)
[2019-01-01] MEDS: Furosemide 40 MG Tablet PO (10:16)
[2019-01-01] MEDS: Escitalopram Oxalate 20 MG Tablet PO (10:17)
[2019-01-01] MEDS: Pantoprazole Sodium 20 MG Tablet PO (10:18)
[2019-01-01] MEDS: Clopidogrel Bisulfate 75 MG Tablet PO (10:18)
[2019-01-01] MEDS: Pregabalin 50 MG Capsule PO (10:21)
== END 2019-01-01 08:32 | disposition home or self-care (01) ==
LOC: CLSP 06:49 → ICU 10:22
PROVIDERS: Referring Provider Internal Medicine Cardiovascular Disease; Visit Provider Internal Medicine Cardiovascular Disease
DX: I25.810 Atherosclerosis of coronary artery bypass graft(s) without angina pectoris (principal); I10 Essential (primary) hypertension; E78.5 Hyperlipidemia, unspecified; G47.33 Obstructive sleep apnea (adult) (pediatric); Z79.02 Long term (current) use of antithrombotics/antiplatelets; Z79.82 Long term (current) use of aspirin; Z95.5 Presence of coronary angioplasty implant and graft; Z95.1 Presence of aortocoronary bypass graft; Z79.899 Other long term (current) drug therapy; Z88.8 Allergy status to other drugs, medicaments and biological substances; Z82.49 Family history of ischemic heart disease and other diseases of the circulatory system
CPT/HCPCS: 36415; 71046; 80048; 80053; 85027; 85347; 85610; 85730; 92928; 93005; 93459; 93567; C1760; J7030; J7040; C1725; C1769; C1874; C1887; C1894; C9600; Q9967

== ENCOUNTER → 2019-04-16 15:27 | Outpatient (CLI) | payer BC, SELFPAY ==
[2018-12-31 13:11] VITALS: BMI 33.7
[2019-04-02 15:26] VITALS: BMI 34.8
--- NOTE | 2019-04-16 16:35 | MRI_ITS ---
STUDY: MRI LUMBAR SPINE WITHOUT CONTRAST REASON FOR EXAM: Male, 63 years old. INCREASING PAIN X 10 YRS, H/O DISCECTOMY 30 YRS AGO TECHNIQUE: Standardized fat and water weighted pulse sequences were obtained in the sagittal and axial planes. COMPARISON: November 12, 2018 FINDINGS: Lumbar lordosis preserved. No significant scoliosis. Conus medullaris terminus normally at the L1 level. No acute fracture. No dislocation. No bone destruction. No spondylolisthesis. Paraspinal muscle atrophy. Normal aorta. Normal retroperitoneum. Sacrum intact. T12-L1: Normal endplates. Normal disc height, hydration and morphology. Facet joint arthrosis. Normal central canal and bilateral lateral recesses. Normal bilateral intervertebral neural foramina. L1-2: Normal endplates. Minimal disc desiccation. Facet joint arthrosis. Normal central canal and bilateral lateral recesses. Normal bilateral intervertebral neural foramina. L2-3: Minimal endplate spondylosis. Tiny left paracentral caudal disc extrusion (sagittal image 5 series 2) and axial images 16 through 18 series 5) with mild central canal narrowing. Facet joint arthrosis. Left lateral recess narrowing with contact of the left descending L3 nerve root. Normal bilateral intervertebral neural foramina. Suspected postsurgical changes. L3-4: Minimal endplate spondylosis. Shallow disc bulge without central canal narrowing. Facet joint arthrosis. Normal central canal and bilateral lateral recesses. Mild neuroforamina narrowing. L4-5: Minimal endplate spondylosis. Right paracentral disc protrusion (axial image 7 series 5) without central canal narrowing. Facet joint arthrosis. Minimal right lateral recess narrowing without impingement. Mild neural foraminal narrowing. Vacuum phenomenon. L5-S1: Minimal endplate spondylosis. Shallow disc bulge. Facet joint arthrosis. Normal central canal and bilateral lateral recesses. Mild right neural foraminal narrowing without impingement. Vacuum phenomenon. MRI/Spine Lumbar (Routine) IMPRESSION: Multilevel intervertebral disc disease with mild central canal narrowing at L2-3 Multilevel lateral recess narrowing with contact of the left descending L3 nerve root Multilevel neural foraminal narrowing without impingement Mild lumbar spine osteoarthritis Electronically Signed: Fer Bunch DO at 10:44 EST Tel , Service support ,
--- NOTE | 2019-04-16 16:35 | MRI_ITS ---
STUDY: MRI THORACIC SPINE WITHOUT CONTRAST REASON FOR EXAM: Male, 63 years old. MID BACK PAIN, ARTHRITIS T5-T7. TECHNIQUE: Standardized fat and water weighted pulse sequences were obtained in the sagittal and axial planes. COMPARISON: None. FINDINGS: Thoracic kyphosis preserved. No significant scoliosis. Conus medullaris terminates normally at the L1 level. No abnormal thoracic cord signal. Mild paraspinal muscle atrophy. Normal aorta. Normal upper abdomen. Normal visualized portions of the mediastinum. Normal visualized lungs given MRI technique. No acute fracture. No dislocation. No bone destruction. Median sternotomy. T3-4 shallow disc bulge. T4-5 left paracentral disc protrusion (axial image 34 series 7) without central canal narrowing. T5-6 shallow disc bulge without central canal narrowing (axial image 31 series 7). T7-8 tiny central disc protrusion (axial image 24 series 7) without significant central canal narrowing. T9 tiny left paracentral disc protrusion (axial image 20 series 7) without central canal narrowing. Additional visualized thoracic levels: No disc herniation. No neural foraminal narrowing. No spondylolisthesis. Minimal endplate spondylosis. Multilevel disc desiccation (sagittal image 7 series 6). Small anterior osteophytes. MRI/Spine Thoracic (Routine) IMPRESSION: Multilevel intervertebral disc disease without significant central canal No significant neural foraminal narrowing Minimal endplate spondylosis with anterior osteophytes Electronically Signed: Fer Bunch DO at 10:56 EST Tel , Service support ,
== END ==
LOC: MRI 15:28
PROVIDERS: Referring Provider Anesthesiology Pain Medicine; Visit Provider Anesthesiology Pain Medicine
DX: M51.35 Other intervertebral disc degeneration, thoracolumbar region (principal); M47.815 Spondylosis without myelopathy or radiculopathy, thoracolumbar region; M48.05 Spinal stenosis, thoracolumbar region; M79.606 Pain in leg, unspecified
CPT/HCPCS: 72146; 72148

== ENCOUNTER → 2019-06-04 16:39 | Outpatient (CLI) | payer BC, SELFPAY ==
[2018-12-31 13:11] VITALS: BMI 33.7
[2019-04-02 15:26] VITALS: BMI 34.8
[2019-06-04 17:51] LABS: Amphetamine Urine VISTA NEGATIVE (<1000 ng/mL); Barbiturate Urine VISTA NEGATIVE (< 200 ng/mL); Benzodiazepine Urine VISTA NEGATIVE (< 200 ng/mL); Cocaine Urine VISTA NEGATIVE (< 300 ng/mL); Ecstacy Urine VISTA NEGATIVE (< 500 ng/mL); Methadone Urine VISTA NEGATIVE (< 300 ng/mL); PCP Urine VISTA NEGATIVE (< 25 ng/mL); THC Urine VISTA NEGATIVE (< 50 ng/mL); Vista UDS pH Range 6
== END ==
PROVIDERS: Referring Provider Anesthesiology Pain Medicine; Visit Provider Anesthesiology Pain Medicine
DX: F11.20 Opioid dependence, uncomplicated (principal)
CPT/HCPCS: 80307

== ENCOUNTER → 2020-02-02 17:27 | Outpatient (CLI) | payer BC, SELFPAY ==
[2018-12-31 13:11] VITALS: BMI 33.7
[2020-01-01 11:01] VITALS: BMI 33.9
== END ==
PROVIDERS: PCP Family Medicine; Referring Provider Family Medicine; Visit Provider Family Medicine
DX: Z20.828 Contact with and (suspected) exposure to other viral communicable diseases (principal)
CPT/HCPCS: 87635; C9803; U0003

== ENCOUNTER → 2020-03-24 06:56 | Outpatient (CLI) | payer BC, SELFPAY ==
[2018-12-31 13:11] VITALS: BMI 33.7
[2020-01-01 11:01] VITALS: BMI 33.9
--- NOTE | 2020-03-24 07:01 | MRI_ITS ---
STUDY: MRI LUMBAR SPINE WITHOUT CONTRAST REASON FOR EXAM: Male, 64 years old. back pain, shooting pain into R leg, h/o prior sx TECHNIQUE: Standardized fat and water weighted pulse sequences were obtained in the sagittal and axial planes. COMPARISON: None FINDINGS: T12-L1: Normal endplates. Normal disc height, hydration and morphology. Normal bilateral facet joints. Normal central canal and bilateral lateral recesses. Normal bilateral intervertebral neural foramina. Normal lumbar lordosis. There is no substantial scoliosis. Normal conus medullaris that terminates at the L1 level. L1-2: Normal endplates. Normal disc height, hydration and morphology. Normal bilateral facet joints. Normal central canal and bilateral lateral recesses. Normal bilateral intervertebral neural foramina. L2-3: There is left para midline disc herniation migrating downward 10 mm impinging on the left nerve roots of the cauda equina. Decreased disc height and small circumferential disc bulge. Degenerative changes of the bilateral facet joints. Mild narrowing of the central canal and bilateral intervertebral neural foramina. L3-4: Endplate spondylosis. Decreased disc height and small circumferential disc bulge. Degenerative changes of the bilateral facet joints. Mild narrowing of the central canal and bilateral intervertebral neural foramina. L4-5: There is large right para midline disc herniation migrating upward 10 mm, impinging on the right L4 and L5 nerve roots. Decreased disc height and small circumferential disc bulge. Degenerative changes of the bilateral facet joints. Mild narrowing of the central canal and bilateral intervertebral neural foramina. L5-S1: Endplate spondylosis. Decreased disc height and small circumferential disc bulge. Degenerative changes of the bilateral facet joints. Normal central canal. Mild narrowing of the bilateral intervertebral neural foramina. Normal visualized sacral ala. Normal visualized paraspinous soft tissue structures. MRI/Spine Lumbar (Routine) IMPRESSION: Multilevel degenerative changes. L2-3: There is left para midline disc herniation migrating downward 10 mm impinging on the left nerve roots of the cauda equina. L4-5: There is large right para midline disc herniation migrating upward 10 mm, impinging on the right L4 and L5 nerve roots. Electronically Signed: Carolina Shahid, at 9:54 EST Tel , Service support ,
== END ==
PROVIDERS: PCP Family Medicine; Referring Provider Anesthesiology Pain Medicine; Visit Provider Anesthesiology Pain Medicine
DX: M51.26 Other intervertebral disc displacement, lumbar region (principal); M79.606 Pain in leg, unspecified
CPT/HCPCS: 72148

== ENCOUNTER → 2020-04-07 14:42 | Outpatient (CLI) | payer BC, SELFPAY ==
[2018-12-31 13:11] VITALS: BMI 33.7
[2020-01-01 11:01] VITALS: BMI 33.9
[2020-04-07 17:15] LABS: Amphetamine Urine VISTA NEGATIVE (<1000 ng/mL); Barbiturate Urine VISTA NEGATIVE (< 200 ng/mL); Benzodiazepine Urine VISTA POSITIVE (< 200 ng/mL); Cocaine Urine VISTA NEGATIVE (< 300 ng/mL); Ecstacy Urine VISTA NEGATIVE (< 500 ng/mL); Methadone Urine VISTA NEGATIVE (< 300 ng/mL); PCP Urine VISTA NEGATIVE (< 25 ng/mL); THC Urine VISTA NEGATIVE (< 50 ng/mL); Vista UDS pH Range 6
== END ==
PROVIDERS: PCP Family Medicine; Referring Provider Anesthesiology Pain Medicine; Visit Provider Anesthesiology Pain Medicine
DX: F11.20 Opioid dependence, uncomplicated (principal)
CPT/HCPCS: 80307

== ENCOUNTER → 2020-07-12 11:28 | Outpatient (CLI) | payer BC, SELFPAY ==
[2018-12-31 13:11] VITALS: BMI 33.7
[2020-07-12 10:22] VITALS: BMI 34.9
[2020-07-12 12:55] LABS: Absolute Lymphocyte Count 1.93 X10^3/uL (0.83-4.51); Absolute Neutrophil Count 5.2 X10^3/uL (2.0-7.7); Basophil# 0.09 X10^3/uL; Basophil% 1.1 % (0-1); Eosinophil# 0.22 X10^3/uL; Eosinophils% 2.6 % (0-5); Lymphocyte # 1.93 X10^3/ul (0.83-4.51); Lymphocyte % 22.9 % (19-41); Mean Corp Hgb Conc 31.1 g/dL (32-36); Mean Corpuscular Hgb 26.5 pg (27.0-32.0); Mean Corpuscular Volume 85.2 fL (80-94); Mean Platelet Vol. 9.4 fl (6.2-12.0); Monocyte# 0.97 X10^3/uL; Monocyte% 11.5 % (0-10); NRBC Flagged by Analyzer 0 % (0-5); Neutrophil # 5.17 X10^3/uL (2.7-7.7); Neutrophil % 61.4 % (47-70); Platelet Count 283 K/mm3 (150-450); RBC Distribution Width CV 13.9 % (11.6-14.6); RBC Distribution Width SD 42.7 fl (35.1-43.9); Red Blood Count 5.28 M/mm3 (4.6-6.2); White Blood Count 8.4 K/mm3 (4.4-11.0)
[2020-07-12 13:22] LABS: Magnesium 2.4 mg/dL (1.6-2.6)
[2020-07-12 13:26] LABS: BNP,B-Type NATRIURETIC PEPTIDE 84.3 pg/mL (0-100)
== END ==
PROVIDERS: Nurse Practitioner Family; PCP Family Medicine; Referring Provider Physician Assistant Medical; Visit Provider Physician Assistant Medical
DX: I25.10 Atherosclerotic heart disease of native coronary artery without angina pectoris (principal); I10 Essential (primary) hypertension; E78.5 Hyperlipidemia, unspecified; R06.09 Other forms of dyspnea; R07.89 Other chest pain; Z95.1 Presence of aortocoronary bypass graft; Z95.5 Presence of coronary angioplasty implant and graft
CPT/HCPCS: 36415; 83735; 83880; 85025

== ENCOUNTER → 2020-08-03 10:33 | Outpatient (CLI) | payer BC, SELFPAY ==
[2018-12-31 13:11] VITALS: BMI 33.7
[2020-07-12 10:22] VITALS: BMI 34.9
--- NOTE | 2020-08-03 10:36 | ECHOCS_ITS ---
Reason For Study: DYSPNEA/SOB Procedure This was a 2D Doppler, Color Flow transthoracic echocardiogram. The study was technically difficult. Due to body habitus. Contrast injection was performed. Exam performed in department. Left Ventricle Normal LV size. Left ventricular systolic function is normal. The estimated ejection fraction is 65 %. No regional wall motion abnormalities noted. Right Ventricle Normal RV size. Normal systolic function. Atria Normal left atrium. Normal right atrium. Bubble contrast study negative for right to left interatrial shunt. Mitral Valve Normal mitral valve. Tricuspid Valve Normal tricuspid valve. Aortic Valve Trisinus/trileaflet aortic valve. Pulmonic Valve The pulmonic valve is not well visualized. Great Vessels Normal aortic root. The pulmonary artery is normal size. Normal inferior vena cava. Pericardium/Pleural No pericardial effusion. Medication 22 gauge I.V. with prn adaptor inserted into left arm. Performed a rapid injection of agitated mix of 9 cc saline and 1cc air to assess for atrial septal defect. Diluted definity 2.5ml given slow IV push to enhance endocardial definition. MMode/2D Measurements & Calculations LVIDd: 5.4 cm IVSd: 0.96 cm Ao root diam: 3.4 cm LVIDs: 3.5 cm LVPWd: 1.2 cm RVDd: 3.8 cm FS: 35.5 % LAV(MOD-bp): 56.8 ml LA A4 area: 18.6 cm2 LA dimension(2D): 5.1 cm LAV(MOD-bp) Indexed: 23.9 ml/m2 LAV(MOD-sp2): 60.2 ml LAV(MOD-sp4): 50.9 ml RA A4 area: 16.1 cm2 Time Measurements MV dec time: 0.19 sec Doppler Measurements & Calculations MV A max goyo: 67.1 cm/sec Lat Peak E' Goyo: 13.1 cm/sec Med Peak E' Goyo: 9.4 cm/sec Ao V2 max: 194.7 cm/sec LV V1 max: 94.9 cm/sec PA V2 max: 161.4 cm/sec Ao max P.9 mmHg LV V1 max P.6 mmHg Ao V2 mean: 129.8 cm/sec LV V1 mean P.0 mmHg Ao mean P.8 mmHg LV V1 mean: 68.7 cm/sec Ao V2 VTI: 36.5 cm LV V1 VTI: 19.2 cm ECHO/Echo Complete W/ Contrast Interpretation Summary Normal LV size. Left ventricular systolic function is normal. The estimated ejection fraction is 65 %. Bubble contrast study negative for right to left interatrial shunt. Contrast injection was performed. Ordering Physician: Rajat Menon Referring Physician: Haley Concepcion Performed By: Estelita Banda RDCS, RVT
== END ==
PROVIDERS: PCP Family Medicine; Referring Provider Nurse Practitioner Family; Visit Provider Nurse Practitioner Family
DX: R06.02 Shortness of breath (principal)
CPT/HCPCS: 93306; Q9957; A4216; C8929

== ENCOUNTER → 2020-08-17 07:20 | Outpatient (CLI) | payer BC, SELFPAY ==
[2018-12-31 13:11] VITALS: BMI 33.7
[2020-07-12 10:22] VITALS: BMI 34.9
--- NOTE | 2020-08-17 11:26 | STRESSREP ---
Stress Test Report Oncologic myocardial perfusion stress test. 64-year-old man with a history of coronary artery bypass surgery. Stress protocol: Resting EKG demonstrates sinus bradycardia with a rate of 53 bpm normal intervals are noted resting blood pressure is 118/62 mmHg. 0.4 mg of regadenoson was infused per usual protocol followed by rapid intravenous saline flush injection continuous EKG monitoring was performed. The maximum heart rate attained was 76 bpm which was 48% of maximum predicted heart rate the maximum workload was 1 metabolic equivalent. At rest there were no ST or T wave changes noted to suggest abnormal flow reserve and at peak infusion nonspecific ST changes were noted. No clinical angina was noted. Myocardial perfusion protocol. 14.5 mCi of technetium 99m sestamibi was injected at rest. 0.4 mg of regadenoson was infused per usual protocol at peak infusion 44.8 mCi of technetium 99m sestamibi was injected stress images were obtained stress and rest images were reconstructed and compared in the short axis vertical long and horizontal long axis. Gated images were also obtained Perfusion SPECT analysis: Review of the stress images demonstrate normal uptake of tracer noted in all areas of the myocardium. The resting images similarly demonstrate normal uptake of tracer noted in all areas of the myocardium. No areas of reversibility are noted to suggest ischemia and no previous infarct is noted. Overall there appears to be normal perfusion noted. Gated SPECT analysis: The gated ejection fraction is 66%. Conclusion: Normal pharmacologic myocardial perfusion stress test with no evidence of ischemia. Preserved ejection fraction.
== END ==
LOC: CVS 07:21
PROVIDERS: PCP Family Medicine; Referring Provider Nurse Practitioner Family; Visit Provider Nurse Practitioner Family
DX: I25.10 Atherosclerotic heart disease of native coronary artery without angina pectoris (principal); I10 Essential (primary) hypertension; E78.5 Hyperlipidemia, unspecified; R07.89 Other chest pain; R06.09 Other forms of dyspnea; R06.02 Shortness of breath; Z95.5 Presence of coronary angioplasty implant and graft; Z95.1 Presence of aortocoronary bypass graft
CPT/HCPCS: 78452; 93017; A9500; A4216; J2785

== ENCOUNTER → 2021-01-24 16:13 | Outpatient (CLI) | payer MEDICARE, SELFPAY ==
[2018-12-31 13:11] VITALS: BMI 33.7
[2021-01-24 18:18] LABS: Amphetamine Urine VISTA NEGATIVE (<1000 ng/mL); Barbiturate Urine VISTA NEGATIVE (< 200 ng/mL); Benzodiazepine Urine VISTA NEGATIVE (< 200 ng/mL); Cocaine Urine VISTA NEGATIVE (< 300 ng/mL); Ecstacy Urine VISTA NEGATIVE (< 500 ng/mL); Methadone Urine VISTA NEGATIVE (< 300 ng/mL); PCP Urine VISTA NEGATIVE (< 25 ng/mL); THC Urine VISTA NEGATIVE (< 50 ng/mL); Vista UDS pH Range 5
== END ==
PROVIDERS: PCP Family Medicine; Referring Provider Anesthesiology Pain Medicine; Visit Provider Anesthesiology Pain Medicine
DX: F11.20 Opioid dependence, uncomplicated (principal)
CPT/HCPCS: 80307

== ENCOUNTER → 2021-02-14 14:40 | Outpatient (CLI) | payer MEDICARE, OTHER, SELFPAY ==
[2018-12-31 13:11] VITALS: BMI 33.7
[2021-02-14 15:53] LABS: Anion Gap 5 (5-15); BUN 17 mg/dL (7-18); BUN/Creat Ratio 17.8 RATIO (10-20); Calcium,Total 8.9 mg/dL (8.5-10.1); Chloride 104 mmol/L (98-107); Creatinine, Serum 0.95 mg/dL (0.70-1.30); EST Glomerular Filtration Rate 84 mL/min (>60); Est Glom Filt Rate - Afr Amer 102 mL/min (>60); Glucose 114 mg/dL (74-106); Potassium 4.2 mmol/L (3.5-5.1); Sodium Level 140 mmol/L (136-145)
[2021-02-14 15:57] LABS: BNP,B-Type NATRIURETIC PEPTIDE 120.2 pg/mL (0-100)
== END ==
PROVIDERS: PCP Family Medicine; Visit Provider Internal Medicine Cardiovascular Disease
DX: I25.10 Atherosclerotic heart disease of native coronary artery without angina pectoris (principal); I25.810 Atherosclerosis of coronary artery bypass graft(s) without angina pectoris; R06.02 Shortness of breath
CPT/HCPCS: 36415; 80048; 83880

== ENCOUNTER 2021-04-04 13:45 | Outpatient (CLI) | payer MEDICARE, OTHER, SELFPAY ==
[2018-12-31 13:11] VITALS: BMI 33.7
--- NOTE | 2021-04-04 13:47 | ECHOCS_ITS ---
Version 2 Reason For Study: MURMUR Procedure This was a 2D Doppler, Color Flow transthoracic echocardiogram. The study was technically difficult. Contrast injection was performed. Left Ventricle Normal LV size. Left ventricular systolic function is normal. The estimated ejection fraction is 65 %. Stage 2 diastolic dysfunction. No regional wall motion abnormalities noted. Right Ventricle Normal RV size. Normal systolic function. Atria Normal left atrium. Normal right atrium. Mitral Valve Posterior leaflet mitral valve prolapse. Moderate (2+) anteriorly directed mitral valve insufficiency. Tricuspid Valve Normal tricuspid valve. Mild to moderate (1-2+) tricuspid valve insufficiency. Pulmonary artery systolic pressure is 38 mmHg. Aortic Valve Trisinus/trileaflet aortic valve. Great Vessels Normal aortic root. The pulmonary artery is normal size. Normal inferior vena cava. Pericardium/Pleural No pericardial effusion. Medication 22 gauge I.V. with prn adaptor inserted into right arm. Diluted definity 1.5ml given slow IV push to enhance endocardial definition. Previously negative bubbles study. MMode/2D Measurements & Calculations LVIDd: 5.1 cm IVSd: 0.94 cm Ao root diam: 3.1 cm LVIDs: 3.1 cm LVPWd: 0.94 cm RVDd: 3.9 cm FS: 40.1 % LAV(MOD-bp): 72.4 ml LVAd ap4: 35.9 cm2 SV(MOD-sp4): 84.6 ml LAV(MOD-bp) Indexed: 33.3 ml/m2 LVLd ap4: 8.0 cm LAV(MOD-sp2): 68.1 ml EDV(MOD-sp4): 130.8 ml LAV(MOD-sp4): 73.4 ml EDV(sp4-el): 137.6 ml LVAs ap4: 19.5 cm2 LVLs ap4: 6.8 cm ESV(MOD-sp4): 46.2 ml ESV(sp4-el): 47.0 ml EF(MOD-sp4): 64.7 % EF(sp4-el): 65.8 % SV(sp4-el): 90.6 ml LA A4 area: 22.1 cm2 LA dimension(2D): 4.9 cm RA A4 area: 15.5 cm2 Doppler Measurements & Calculations MV E max goyo: 97.8 cm/sec Lat Peak E' Goyo: 11.4 cm/sec Med Peak E' Goyo: 6.1 cm/sec MV A max goyo: 64.2 cm/sec E/E' lat: 8.6 E/E' med: 16.1 MV E/A: 1.5 Ao V2 max: 203.5 cm/sec LV V1 max: 133.0 cm/sec PA V2 max: 148.6 cm/sec Ao max P.6 mmHg LV V1 max P.1 mmHg Ao V2 mean: 126.7 cm/sec LV V1 mean P.9 mmHg Ao mean P.5 mmHg LV V1 mean: 77.3 cm/sec Ao V2 VTI: 37.4 cm LV V1 VTI: 23.1 cm TR max goyo: 285.1 cm/sec TR max P.5 mmHg ECHO/Echo Complete W/ Contrast Interpretation Summary Normal LV size. Left ventricular systolic function is normal. The estimated ejection fraction is 65 %. Stage 2 diastolic dysfunction. Pulmonary artery systolic pressure is 38 mmHg. Contrast injection was performed. Ordering Physician: Fish Dempsey Referring Physician: ANGUS HOPKINS Performed By: Shanta Grimes, RDCS, RVT
== END 2021-04-04 23:59 | disposition short-term general hospital (02) ==
LOC: CVS 13:47
PROVIDERS: PCP Family Medicine; Referring Provider Internal Medicine Cardiovascular Disease; Visit Provider Internal Medicine Cardiovascular Disease
DX: I34.1 Nonrheumatic mitral (valve) prolapse (principal)
CPT/HCPCS: 93306; Q9957; A4216; C8929

== ENCOUNTER 2021-04-26 12:40 | Outpatient (CLI) | payer MEDICARE, OTHER, SELFPAY ==
[2018-12-31 13:11] VITALS: BMI 33.7
--- NOTE | 2021-04-26 12:42 | STEWCON_ITS ---
Reason For Study: DYSPNEA/SOB Stress Results Protocol: Dobutamine Stress Echo With Definiity Maximum Predicted HR: 155 bpm Target HR: 132 bpm % Maximum Predicted HR: 85 % Heart Stage Duration Rate BP Dose Comment (mm:ss) (bpm) BASELINE 55 108/60 8CC DEFINITY TOTAL FOR TEST STAGE 1 3:00 71 120/5210.00 STAGE 2 3:00 105 120/5220.00 STAGE 3 3:00 108 128/5230.00 0.5MG ATROPINE GIVEN, CHEST DISCOMFORT NOTED, TREMORS TO LEFT STAGE 4 4:21 131 110/5040.00ARM AND HAND NOTED RECOVERY 6:00 98 120/60 CHEST DISCOMFORT DID RESOLVE AFTER 4 MINS Stress Duration: 19:21 mm:ss Maximum Stress HR: 131 bpm Baseline Echocardiogram Findings Stress Echo Wall motion Data Resting WM Intermediate WM Stress WM Doppler Measurements & Calculations MV E max kevin: 90.9 cm/sec MV A max kevin: 80.8 cm/sec MV E/A: 1.1 ECHO/Stress Test Echo W/Contrast Interpretation Summary Dobutamine stress echocardiogram. Resting EKG demonstrates sinus bradycardia with a rate of 52 bpm resting blood pressure is 102/60 mmHg. Dobutamine was infused starting at 10 mcg/kg/min increasing to a peak of 40 mcg/kg/min. 0.5 mg of atropine was given to obtain appropriate target heart rate. The patient main tained sinus rhythm throughout the recording. No ST or T wave changes were noted at rest. At peak i nfusion there was approximately 1.[address] depression noted in leads II, aVF and V6. Occasional premature ventricular complexes were noted. The above was suggestive but not diagnostic o f ischemia. No sustained arrhythmias were noted. The patient did experience some chest discomf ort at peak infusion which appeared to resolve during recovery. The peak blood pressure was 128/52 m mHg. Dobutamine stress echocardiogram. Resting echocardiogram performed with Definity enhancement demonstrated preserv ed left ventricular systolic function with an estimated ejection fraction of 65%. At low-dose there was improvement in left ventricular ejection fraction and at peak dose there was near complete obl iteration of the left ventricular cavity. Thickening of all hopkins was noted. No new wall motion abnor malities was present. Conclusion: Dobutamine stress echocardiogram with no wall motion abnormality suggesting isc hemia. Chamber obliteration noted. Chest pain of unknown significance. Ordering Physician: Fish Dempsey Referring Physician: Fish Dempsey Performed By: Haley Menon, KOBE, RVT
== END 2021-04-26 23:59 | disposition short-term general hospital (02) ==
LOC: CVS 12:41
PROVIDERS: PCP Family Medicine; Referring Provider Internal Medicine Cardiovascular Disease; Visit Provider Internal Medicine Cardiovascular Disease
DX: I50.32 Chronic diastolic (congestive) heart failure (principal)
CPT/HCPCS: 93017; 93350; J7040; Q9957; A4216; C8928

== ENCOUNTER → 2022-08-22 | Outpatient (CLI) | payer MEDICARE, OTHER, SELFPAY ==
[2021-05-17 11:10] VITALS: BMI 33.7
[2022-08-22 12:51] LABS: AST(SGOT) 24 U/L (15-37); Alanine Aminotransfer ALT/SGPT 32 U/L (16-61); Albumin, Serum 3.6 g/dL (3.2-5.0); Alkaline Phosphatase 93 U/L (45-117); Bilirubin, Direct 0.13 mg/dL (0.00-0.30); Cholesterol 172 mg/dL (200); Globulin 3.2 g/dL (2.2-4.2); High Density Lipoprotein 54 mg/dL; Protein, Total 6.8 g/dL (6.4-8.2); Triglycerides 124 mg/dL; Very Low Density Lipoprotein 25 mg/dL (5-40)
== END | disposition home or self-care (01) ==
LOC: LAB 11:38
PROVIDERS: PCP Family Medicine; Referring Provider Internal Medicine Cardiovascular Disease; Visit Provider Internal Medicine Cardiovascular Disease
DX: E78.5 Hyperlipidemia, unspecified (principal); I25.810 Atherosclerosis of coronary artery bypass graft(s) without angina pectoris
CPT/HCPCS: 36415; 80061; 80076

== ENCOUNTER 2024-10-29 14:05 | Emergency (ER) | payer MEDICARE, OTHER, SELFPAY ==
[2021-05-17 11:10] VITALS: BMI 33.7
[2024-10-29 14:05] VITALS: BP 180/79; PULSE 75; RESP 24; TEMP 36.5; O2SAT 99; BMI 33.0
--- NOTE | 2024-10-29 14:15 | EKG12_ITS ---
Test Reason : UPPER GASTRIC PAIN Blood Pressure : */* mmHG Vent. Rate : 70 BPM Atrial Rate : 70 BPM P-R Int : 202 ms QRS Dur : 86 ms QT Int : 366 ms P-R-T Axes : 57 55 35 degrees QTcB Int : 395 ms Sinus rhythm with Premature atrial complexes Otherwise normal ECG Confirmed by JENISE MEDINA ([id number]), editor map BRITT BEST ([id number]) on 11/02/2024 6:46:04 AM Referred By: MARTINEZ/JACLYN Confirmed By: JENISE MEDINA
[2024-10-29 14:22] LABS: Hematocrit 39.7 % (40-54); Hemoglobin 11.8 g/dL (13.0-16.5); Immature Granulocytes Count 0.030 X10^3/uL (0.0-0.0); Mean Corp Hgb Conc 29.7 g/dL (32-36); Mean Corpuscular Volume 75.3 fL (80-94); Mean Platelet Vol. 9.1 fl (6.2-12.0); NRBC Flagged by Analyzer 0 % (0-5); Platelet Count 365 K/mm3 (150-450); RBC Distribution Width CV 15.1 % (11.6-14.6); RBC Distribution Width SD 41.0 fl (35.1-43.9); Red Blood Count 5.27 M/mm3 (4.6-6.2); White Blood Count 9.9 K/mm3 (4.4-11.0)
--- NOTE | 2024-10-29 14:23 | RAD_ITS ---
PROCEDURE: CHEST PA AND LATERAL 10/29/2024 REASON FOR EXAM: CHEST PAIN TECHNIQUE: CHEST PA AND LATERAL COMPARISON: Prior study dated December 29, 2018. FINDINGS: Hardware: Prior midline sternotomy. Heart: Moderate cardiac enlargement. Mediastinum: The mediastinal contour is unremarkable. Lungs: Mild increased linear markings at the lung bases suggestive of mild linear atelectasis and/or scarring. Bones: Degenerative changes are identified within the thoracic spine. RAD/Chest PA and Lateral IMPRESSION: Status post CABG. Cardiomegaly. Mild increased markings at the lung bases suggestive of either linear atelectas is and/or scarring. Reading Location: [place]
[2024-10-29 14:39] LABS: Anion Gap 12 (5-15); BUN 14 mg/dL (4-19); BUN/Creat Ratio 13.1 RATIO (10-20); Calcium,Total 9.1 mg/dL (7.6-11.0); Carbon Dioxide 21.3 mmol/L (21.0-32.0); Chloride 106 mmol/L (98-108); Estimated Creatinine Clearance 84.50 ml/min (50-250); Glucose 112 mg/dL (70-99); Potassium 4.2 mmol/L (3.3-5.1); Troponin T High Sensitivity 12 ng/L (<=22)
--- NOTE | 2024-10-29 15:59 | EDS_ITS ---
HPI History of Present Illness Chief Complaint: Chest Other Informant: patient Onset/Context/Timing Onset: Weeks Activity at onset: gradual Timing: Intermittent Quality: Positive for Burning, Heaviness and Indigestion Location: Substernal Current Severity: Mild Maximum Severity: Mild Worsened By: - (Lying supine.) Relieved By: Antacids Associated Symptoms: Positive for Acid Reflux; Negative for Diaphoresis or Dyspnea Narrative Narrative: 69-year-old male history of CAD with stents and prior triple bypass. States he has had a stress test earlier this year that was negative. States he has been having what he believes is reflux the last several weeks that gets worse at night usually 2 or 3 AM in the morning and often wakes him up. Not associated with exertion or shortness of breath. More positional when he is supine. He is on Protonix once a day and recently had Zantac added. Prior Similar Symptoms: Yes Recent Illness/Hospitalization: No CVD Risk Factors: Positive for Hypertension PE Risk Factors: Negative for Recent Travel/Surgery, Recent Immobilization, Prior DVT or PE or Cancer TAD Risk Factors: Negative for Marfan's Syndrome or Hypertension [facility] Medical History Dyskinesia Encounter for screening for COVID-19 URI (upper respiratory infection) Chronic diastolic (congestive) heart failure Nonrheumatic mitral (valve) insufficiency Nonrheumatic mitral (valve) prolapse Essential hypertension Atherosclerosis of coronary artery bypass graft without angina pectoris Atherosclerosis of coronary artery of [place] heart without angina pectoris Hyperlipidemia Home Medications ?Medication ?Instructions ?Recorded ?Last Taken ?Type nitroglycerin 0.4 mg sublingual 0.4 mg sublingual Q5-1 5M PRN Chest 02/07/22 Unknown Rx tablet Pain #25 tabs aspirin 81 mg tablet,delayed 81 mg PO DAILY #90 tabs 0 09/06/23 Unknown Rx release (Adult Low Dose Aspirin) atorvastatin 40 mg tablet 40 mg PO DAILY #90 tabs 08/23 07/16 Unknown Rx losartan 50 mg tablet 50 mg PO BID #180 tabs 09/05 Unknown Rx carvedilol 3.125 mg tablet 3.125 mg PO BID 10/22/24 Un known History clopidogrel 75 mg tablet 75 mg PO QDAY 10/22/24 Unkno wn History deutetrabenazine 9 mg tablet 4.5 mg PO BID 10/22/24 Un known History (Austedo) famotidine 20 mg tablet 20 mg PO QHS 10/22/24 Unknow n History furosemide 40 mg tablet 40 mg PO Q OTHER DAY PRN sharona ma 10/22/24 Unknown History multivitamin 1 tab PO DAILY PRN 10/22/24 Unknown History pantoprazole 40 mg tablet,delayed 40 mg PO QHS 5 Unknown History release sennosides 8.6 mg-docusate sodium 1 tab-cap PO BID PRN 10/22/24 Unknown History 50 mg tablet sucralfate 1 gram tablet (Carafate) 1 g PO Q6H #30 tab s 10/29/24 Unknown Rx Allergy/AdvReac Type Severity Reaction Status Date / Time adhesive tape Allergy Mild Rash Verified 10/29/24 14:08 atorvastatin AdvReac Severe Memory and Verified 10/29/24 14:08 balance issues Family History Mother CAD (coronary artery disease) Brother CAD (coronary artery disease) Surgical History History of coronary artery stent placement (12/31/18) H/O coronary artery bypass surgery (10/02/07) Social History Smoking Status: Never smoker alcohol intake: never substance use type: does not use caffeine: No ROS ROS ED ROS Narrative Nonexertional chest pain/reflux. Constitutional Constitutional ED: Denies chills or fever(s) Eyes Eyes: Reports none ENT ENT ED: Denies ear pain Cardiovascular Cardiovascular: Reports as per HPI and chest pain; Denies palpitations or racing heartbeat Respiratory/Chest Respiratory/Chest: Denies cough, dyspnea or dyspnea on exertion Gastrointestinal Gastrointestinal: Denies abdominal pain, constipation, diarrhea, melena, nausea or vomiting Genitourinary Genitourinary ED: Denies dysuria or hematuria Musculoskeletal Musculoskeletal: Denies arthralgias Integumentary Denies abscess Neurologic Neurologic: Denies headache(s) Psychiatric Psychiatric: Denies anxiety Endocrine Endocrinology: Denies cold intolerance Hematologic/Lymphatic Hematologic/Lymphatic: Denies easy bleeding, easy bruising or lymphadenopathy Allergic/Immunologic Allergic/Immunologic ED: Denies mouth swelling, tongue swelling, urticaria or other EXAM Physical Exam Narrative Exam Narrative: 69-year-old male sitting upright in bed. Vital signs are stable afebrile. He does not look septic or toxic. He is currently no distress. Pulse ox 9 9% on room air no hypoxia. H EENT unremarkable. Pupils round reactive light. Moist Jose members. Neck nontender no JVD. Lungs clear to auscultation bilaterally. Heart regular rhythm rate about 75 does have a 5/6 systolic ejection murmur which she has had. Prior CABG well-healed sternotomy incision. Chest wall nontender. Abdomen soft nontender. Normal bowel sounds without peritoneal signs. Nontender. Moving all 4 extremities. Nontender no edema no cords. 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 Normal dorsi plantarflexion. Back nontender. Neurologically is awake alert. Answer questions following commands Const Vital Signs: 10/29/24 14:05 10/29/24 14:20 10/29/24 16:05 Temperature 97.7 F L Temperature Source Oral Pulse Rate 75 Respiratory Rate 24 H Respiratory Effort Normal Non-Labored Blood Pressure 180/79 H Blood Pressure Mean 112 Pulse Ox 99 Oxygen Delivery Method Room Air Room Air 10/29/24 16:05 Temperature Temperature Source Pulse Rate 79 Respiratory Rate 18 Respiratory Effort Blood Pressure 164/88 H Blood Pressure Mean 113 Pulse Ox 98 Oxygen Delivery Method Positive well nourished and well developed; Negative for cachectic or contractures General Appearance ED: well developed and NAD; Negative for cachectic, contractures or pallor Nutritional Appearance: Negative for cachectic HEENT Reports moist mucous membranes normocephalic and atraumatic; Negative for trauma or tenderness Eyes PERRL and EOMs intact bilaterally General Eye ED: Negative for pale conjunctiva or scleral icterus Neck no lymphadenopathy, supple and no JVD General: Negative for tenderness Chest Wall inspection of chest normal and palpation of chest normal Resp normal respiratory effort and clear to auscultation bilaterally Cardio regular rate, regular rhythm, S1 normal heart sound, S2 normal heart sound and no murmurs GI normal to inspection, nondistended, normoactive bowel sounds, soft to palpation, non-tender, non-distended and no masses Back/Spine no CVA tenderness and no thoracic nor lumbar tenderness Extremity normal to inspection General Extremety ED: Negative for edema, pulses abnormal or tenderness General Extremity: Negative for edema or pulses abnormal Neuro oriented x3 and CN's II-XII intact bilaterally Sensorium / Orientation: awake, alert, oriented to person, oriented to place and oriented to time; Negative for confused or lethargic Motor Exam: strength 5/5 throughout Psych mental status grossly normal Attitude: No agitated Mood & Affect: Negative for depressed, anxious or tearful Skin no rashes or lesions noted and no wounds General Skin Exam: Negative for jaundice or pallor Rashes: No rashes noted Trauma: Negative for abrasion or laceration Heart Score History: Slightly/Non-Suspicious ECG: Normal Age: >/= 65 years Risk Factors: >/= 3 Risk Factors or History of CAD Troponin: </= Normal Limit Score: 4 MDM MDM MDM Narrative Medical decision making narrative: 69-year-old male with chest pain that has had for weeks intermittently worse with being in supine position. Not exertional. He has a cardiac history with prior CABG and stents. Will undergo cardiac workup but clinically and his story likely this is reflux. Also be given Protonix and a GI cocktail see if improves his symptoms. Repeat exam at 5:15 PM patient doing well. He said that the Protonix and GI cocktail he was given did improve his symptoms. Clinically this does not sound cardiac is more positionally supine. It is not exertional. On card with him being discharged to home he will be started on Carafate 4 times a day along with his Protonix and outpatient follow-up with his primary care provider. History & Record Review Discussion w/independent historian: Patient Additional record(s) reviewed:: Prior inpatient record, Prior outpatient record, Prior ED visit and Prior labs Lab Data Attestation: I reviewed the patient's lab results. Lab results narrative: CBC shows a white count 9.9. H&H 11.8 and 39. Platelets 365. Electrolytes shows sodium 139. Gap 12. Normal BUN and creatinine of 14 and 1. Glucose 112. Initial troponin 12. 2-hour troponin equals 14 without any significant change. Chest x-ray was unremarkable. Labs: Laboratory Results - last 24 hr 10/29/24 10/29/24 14:12 16:23 WBC 9.9 RBC 5.27 Hgb 11.8 L Hct 39.7 L MCV 75.3 L MCH 22.4 L MCHC 29.7 L RDW Std Deviation 41.0 RDW Coeff of Manuel 15.1 H Plt Count 365 MPV 9.1 Immature Gran % (Auto) 0.300 Neut % (Auto) 52.8 Lymph % (Auto) 31.2 Geary % (Auto) 12.0 H Eos % (Auto) 2.7 Baso % (Auto) 1.0 Absolute Neuts (auto) 5.3 Absolute Lymphs (auto) 3.10 Nucleated RBC % 0 Sodium 139 Potassium 4.2 Chloride 106 Carbon Dioxide 21.3 Anion Gap 12 BUN 14 Creatinine 1.06 Estim Creat Clear Calc 84.50 Est GFR (MDRD) Non-Af 76 BUN/Creatinine Ratio 13.1 Glucose 112 H Calcium 9.1 Troponin T High Sens 12 Troponin T Hi Sens 2 Hr 14 Radiography Chest X-Ray - ED: Read by ED Physician, Read by Radiologist, Normal, Heart, Lungs, Mediastinum, Bony Structures, No Acute Disease and Chronic Changes Diagnostic Testing: Clinical Impression(s) from Imaging Studies Chest X-Ray 10/29/24 14:23 IMPRESSION: Status post CABG. Cardiomegaly. Mild increased markings at the lung bases suggestive of either linear atelectasis and/or scarring. Reading Location: [facility] Chest x-ray, 2 views, AP and lateral, interpreted both by myself and the radiologist shows normal cardiac silhouette. Normal lung osorio. Sternotomy wires. No acute process. Chronic changes. Rhythm Strip Rhythm Strip: Sinus Rhythm Rate: 70 Ectopy: None and PAC(s) EKG Initial EKG: Attestation: I personally reviewed and interpreted this EKG as follows: Interpretation: Sinus Rhythm and No Acute Injury Pattern Comments: Normal sinus rhythm rate of 70 no acute signs of RI or ischemia. Discharge Plan Triage Chief Complaint: Chest Other ED Provider: Tunde Lin Dx/Rx/DC Orders Clinical Impression: Chest pain, Hx of coronary artery bypass graft, History of heart artery stent, Essential hypertension, Acid reflux Instructions: ED GERD (Adult) Prescriptions: New sucralfate [Carafate] 1 gram tablet 1 g PO Q6H Qty: 30 0RF No Action multivitamin Tablet 1 tab PO DAILY PRN nitroglycerin 0.4 mg tablet, sublingual 0.4 mg sublingual Q5-15M PRN (Reason: Chest Pain) Qty: 25 3RF sennosides-docusate sodium 8.6-50 mg tablet 1 tab-cap PO BID PRN aspirin [Adult Low Dose Aspirin] 81 mg tablet,delayed release (DR/EC) 81 mg PO DAILY Qty: 90 3RF atorvastatin 40 mg tablet 40 mg PO DAILY Qty: 90 3RF losartan 50 mg tablet 50 mg PO BID Qty: 180 3RF clopidogrel 75 mg tablet 75 mg PO QDAY famotidine 20 mg tablet 20 mg PO QHS furosemide 40 mg tablet 40 mg PO Q OTHER DAY PRN (Reason: edema) carvedilol 3.125 mg tablet 3.125 mg PO BID pantoprazole 40 mg tablet,delayed release (DR/EC) 40 mg PO QHS [place] 9 mg tablet 4.5 mg PO BID Primary Care Provider: Haley Concepcion Referrals: Haley Concepcion MD [Primary Care Provider] - 3-5 Days if not improving Activity Restrictions/Additional Instructions: Continue your Protonix you can take 1 pill twice a day with that. Carafate 1 pill 4 times per day. Follow-up with your doctor to ensure you are improving. Return if you feel a lot worse. Print Language: Djib[place]ian Disposition Disposition: Home, Self Care
[2024-10-29 16:05] VITALS: BP 164/88; PULSE 79; RESP 18; O2SAT 98
[2024-10-29] MEDS: Lidocaine 2% Viscous15 ML UDC 15 ML PO (16:20)
[2024-10-29 17:01] LABS: Troponin T High Sens 2 HR 14 ng/L (<=22)
[2024-10-29 17:31] VITALS: BP 156/84; PULSE 71; RESP 16; TEMP 36.5; O2SAT 99
== END 2024-10-29 17:32 | disposition home or self-care (01) ==
PROVIDERS: Emergency Provider Emergency Medicine; PCP Family Medicine; Visit Provider Emergency Medicine
DX: R07.9 Chest pain, unspecified (principal); I11.0 Hypertensive heart disease with heart failure; I50.32 Chronic diastolic (congestive) heart failure; I25.10 Atherosclerotic heart disease of native coronary artery without angina pectoris; K21.9 Gastro-esophageal reflux disease without esophagitis; Z95.1 Presence of aortocoronary bypass graft; Z95.5 Presence of coronary angioplasty implant and graft
CPT/HCPCS: 71046; 80048; 84484; 85025; 93005; 99285

== ENCOUNTER → 2024-11-10 | Outpatient (CLI) | payer MEDICARE, OTHER, SELFPAY ==
[2021-05-17 11:10] VITALS: BMI 33.7
--- NOTE | 2024-11-10 14:52 | ECHOD_ITS ---
Reason For Study Reason For Study: MURMUR Procedure This was a 2D Doppler, Color Flow transthoracic echocardiogram. The study was technically difficult. Exam performed in department. Left Ventricle Normal LV size. Left ventricular systolic function is normal. The left ventricular ejection fraction is 65 %. No regional wall motion abnormalities noted. Right Ventricle Normal RV size. Normal systolic function. Atria Normal left atrium. Normal right atrium. Mitral Valve Normal mitral valve. Mild-Moderate (1-2+) eccentric mitral valve insufficiency. Tricuspid Valve Normal tricuspid valve. Aortic Valve Trisinus/trileaflet aortic valve. Pulmonic Valve Normal pulmonic valve. Great Vessels Normal aortic root. The pulmonary artery is normal size. Inferior vena cava collapse with respiration. Pericardium/Pleural No pericardial effusion. MMode/2D Measurements & Calculations LVIDd: 4.9 cm IVSd: 1.1 cm LVOT diam: 2.1 cm LVIDs: 2.2 cm LVPWd: 1.1 cm LVOT area: 3.6 cm2 RVDd: 3.6 cm FS: 55.6 % asc Aorta Diam: 3.2 cm LAV(MOD-bp): 56.5 ml LVAd ap4: 24.7 cm2 LAV(MOD-bp) Indexed: 24.5 ml/m2 LVLd ap4: 7.3 cm LAV(MOD-sp2): 58.7 ml EDV(MOD-sp4): 67.5 ml LAV(MOD-sp4): 52.4 ml EDV(sp4-el): 71.3 ml LVAs ap4: 13.1 cm2 LVLs ap4: 6.5 cm ESV(MOD-sp4): 22.5 ml ESV(sp4-el): 22.6 ml EF(MOD-sp4): 66.7 % EF(sp4-el): 68.3 % LVAd ap2: 23.5 cm2 SV(MOD-sp4): 45.0 ml SV(MOD-sp2): 39.8 ml LVLd ap2: 7.5 cm SI(MOD-sp4): 19.5 ml/m2 SI(MOD-sp2): 17.3 ml/m2 EDV(MOD-sp2): 59.9 ml EDV(sp2-el): 62.3 ml LVAs ap2: 12.0 cm2 LVLs ap2: 6.6 cm ESV(MOD-sp2): 20.1 ml ESV(sp2-el): 18.3 ml EF(MOD-sp2): 66.4 % SV(sp4-el): 48.7 ml Ao sinus diam: 3.[address] Junction: 2.7 cm LA dimension(2D): 5.0 cm LA A4 area: 19.3 cm2 RA A4 area: 15.2 cm2 TAPSE: 1.6 cm Time Measurements MV dec time: 0.20 sec Doppler Measurements & Calculations MV E max goyo: 68.0 cm/sec Lat Peak E' Goyo: 12.3 cm/sec Med Peak E' Goyo: 8.4 cm/sec MV A max goyo: 64.8 cm/sec E/E' lat: 5.5 E/E' med: 8.1 MV E/A: 1.0 MV dec slope: 334.2 cm/sec2 Ao V2 max: 197.5 cm/sec LV V1 max: 94.2 cm/sec Ao max P.6 mmHg LV V1 max P.5 mmHg Ao V2 mean: 143.7 cm/sec LV V1 mean P.7 mmHg Ao mean P.9 mmHg LV V1 mean: 60.2 cm/sec Ao V2 VTI: 32.8 cm LV V1 VTI: 18.0 cm AV (velocity ratio): 0.55 JACIEL(I,D): 2.0 cm2 JACIEL(V,D): 1.7 cm2 SV(LVOT): 64.5 ml PA V2 max: 153.3 cm/sec PI end-d goyo: 110.0 cm/sec ECHO/Echo Complete Interpretation Summary Normal LV size. Left ventricular systolic function is normal. The left ventricular ejection fraction is 65 %. Mild-Moderate (1-2+) eccentric mitral valve insufficiency. Ordering Physician: Fish Dempsey Referring Physician: Fish Dempsey MD Performed By: Cristy Ling RDCS
== END | disposition home or self-care (01) ==
LOC: CVS 14:51
PROVIDERS: PCP Family Medicine; Referring Provider Internal Medicine Cardiovascular Disease; Visit Provider Internal Medicine Cardiovascular Disease
DX: I34.0 Nonrheumatic mitral (valve) insufficiency (principal)
CPT/HCPCS: 93306